=== PATIENT | male | born 1985 | race Hispanic/Latino ===

== ENCOUNTER 2023-08-11 20:52 | Inpatient (IN) | payer SELFPAY ==
[2023-08-11] MEDS ORDERED: PANTOPRAZOLE 40 MG INJ ONE (20:59)
[2023-08-11] MEDS ORDERED: OCTREOTIDE ACETATE 500 MCG/ML ONE (21:00)
[2023-08-11] MEDS ORDERED: NA CHLORIDE 0.9% 250 ML ONE ×2 (21:00→21:11)
[2023-08-11] MEDS ORDERED: NA CHLORIDE 0.9% 500 ML ONE (21:01)
[2023-08-11] MEDS ORDERED: NOREPINEPHRINE BITARTRATE/D5W 4 MG/250 ML BAG IV ONE (21:02)
[2023-08-11] MEDS ORDERED: ETOMIDATE 20 MG/10 ML VIAL IV ONE (21:03)
[2023-08-11] MEDS ORDERED: ROCURONIUM 50 MG/5 ML VIAL IV ONE (21:04)
[2023-08-11] MEDS ORDERED: NA CHLORIDE 0.9% 1,000 ML ONE (21:12)
[2023-08-11] MEDS ORDERED: MIDAZOLAM HCL IN 0.9 % NACL/PF 100 MG/100 ML BAG IVPB ONE (21:35)
[2023-08-11] MEDS ORDERED: NA CHLORIDE 0.9% 50 ML ONE (21:38)
[2023-08-11] MEDS ORDERED: FENTANYL CITR 100 MCG/2 ML ONE (21:38)
--- NOTE | 2023-08-11 21:46 | RAD REPORT ---
EXAM DESCRIPTION: RAD - Chest Single View - 08/11/2023 9:41 pm CLINICAL HISTORY: intubation Chest pain. COMPARISON: <Comparisons> FINDINGS: Portable technique limits examination quality. The lungs are grossly clear. Tip of the ET tube is above the donis at the level of the mid aortic ar ch. The heart is normal in size. No displaced fractures.
[2023-08-11 22:07] LABS: Absolute Lymphocytes (CBC) 2.1 K/uL (0.7-4.9); Hematocrit 14.6 % (39.6-49.0); MCV 100.1 fL (80-100); MPV 9.6 fL (7.6-11.3); Platelets 80 thou/uL (152-406); RBC Red Blood Cell Count 1.45 M/uL (4.33-5.43)
[2023-08-11] MEDS ORDERED: CEFTRIAXONE 1000 MG/VIAL ONE (22:12)
[2023-08-11 22:16] LABS: Protime INR 2.05
[2023-08-11 22:25] LABS: Albumin 1.7 g/dL (3.4-5.0); Bilirubin Total 1.7 mg/dL (0.2-1.0); Protein, Total 4.6 g/dL (6.4-8.2)
--- NOTE | 2023-08-11 22:31 | ER ---
Nurse's Notes [facility] Name: Leonardo Bravo Age: 37 yrs Sex: Male : 1985 Arrival Date: 08/11/2023 Time: 20:52 Bed 2 Private MD: Diagnosis: GI Bleed/ Gastrointestinal hemorrhage, unspecified;Anemia, unspecified;Altered mental status, unspecified Presentation: 08/11 20:55 Chief complaint: EMS states: EMS reports pt has had multiple events of bloody emesis tl4 and rectal bleeding all day today. Pt is unresponsive. Coronavirus screen: At this time, the client does not indicate any symptoms associated with coronavirus-19. Ebola Screen: No symptoms or risks identified at this time. 20:56 Method Of Arrival: EMS: [facility] tl4 21:02 Initial Sepsis Screen: Does the patient meet any 2 criteria? No. Patient's initial tl4 sepsis screen is negative. Does the patient have a suspected source of infection? No. Patient's initial sepsis screen is negative. 22:05 Risk Assessment: Do you want to hurt yourself or someone else? Unable to obtain. Onset tl4 of symptoms was August 11, 2023. 22:05 Acuity: JUAN 1 tl4 Triage Assessment: 21:10 General: Appears unkempt, Behavior is unresponsive. Pain: Unable to use pain scale. tl4 Patient is unresponsive. EENT: No deficits noted. Neuro: Level of Consciousness is unresponsive. Cardiovascular: Capillary refill is > 3 seconds in bilateral fingers skin cold, dry. Pulses are palpable in right radial artery and left radial artery are 1+ in right radial artery and left radial artery Rhythm is sinus tachycardia. Respiratory: Airway is patent Breath sounds are coarse bilaterally. GI: Parent/caregiver reports the patient having vomiting, bloody stool and emesis. : No deficits noted. Derm: No deficits noted. Historical: - Allergies: 22:05 No Known Allergies; tl4 - Home Meds: 22:05 None [Active]; tl4 - PMHx: 22:05 Alcohol dependence; tl4 - PSHx: 22:05 None; tl4 - Immunization history:: Adult Immunizations unknown. - Social history:: Smoking status: unknown. Screenin:16 [facility] ED Fall Risk Assessment (Adult) History of falling in the last 3 months, tl4 including since admission No falls in past 3 months (0 pts) Confusion or Disorientation Yes (5 pts) Intoxicated or Sedated Yes (3 pts) Impaired Gait Yes (1 pt) Mobility Assist Device Used Yes (1 pt) Altered Elimination No (0 pt) Score/Fall Risk Level 3 or more points = High Risk Oriented to surroundings, Maintained a safe environment, Educated pt \T\ family on fall prevention, incl call for assistance when getting out of bed, Assessed \T\ reinforced patient's understanding of fall precautions, Provided non-skid footwear, Hourly rounding (assess needs \T\ fall precautionary measures) done, Used ambulatory aids as needed (educated on \T\ assisted with), Used gait belt as appropriate Utilized family, sitter, or virtual insurance billing clerk as indicated. Abuse screen: Denies threats or abuse. Denies injuries from another. Nutritional screening: No deficits noted. Tuberculosis screening: No symptoms or risk factors identified. Assessment: 21:45 Reassessment: Pt intubated on ventilator. Pt compliant with ventilations. to tl4 bedside with Dr. Salas. Support provided, questions answered. Will continue to monitor. 22:14 Reassessment: Pt intubated, blood pressure improved. at bedside. Pain: Unable to tl4 use pain scale. Patient is intubated. 23:48 Reassessment: Pt remains intubated and sedated. at bedside. Reassessment:. tl4 23:49 Reassessment: Report given to CRISTINA Mar in ICU. tl4 Vital Signs: 21:00 BP 83 / 56; Pulse 152; Resp 12; Temp 97(Ca); Pulse Ox 100% ; Weight 91.63 kg (M); tl4 21:13 BP 86 / 52; Pulse 144; Resp 14; Pulse Ox 99% on 6 lpm NC; tl4 21:15 BP 109 / 53; Pulse 158; Resp 15; Pulse Ox 99% on 6 lpm NC; tl4 21:20 BP 98 / 70; Pulse 140; Resp 13; Pulse Ox 100% on 6 lpm NC; tl4 21:25 BP 188 / 107; Pulse 155; Resp 16; Pulse Ox 99% on BVM with oxygen; tl4 21:30 BP 198 / 110; Pulse 147; Resp 15; Temp 97.1(Ca); Pulse Ox 99% on ETT vent; tl4 21:35 BP 190 / 105; Pulse 141; Resp 15; Temp 97(Ca); Pulse Ox 100% on ETT vent; tl4 21:40 BP 192 / 99; Pulse 146; Resp 15; Pulse Ox 100% on ETT vent; tl4 21:45 BP 162 / 85; Pulse 144; Resp 16; Temp 97(Ca); Pulse Ox 100% on ETT vent; tl4 22:05 Weight 92.99 kg; as9 22:15 BP 132 / 70; Pulse 138; Resp 17; Temp 96.9(TE); Pulse Ox 100% on ETT vent; tl4 22:30 BP 141 / 70; Pulse 136; Resp 15; Temp 97(Ca); Pulse Ox 100% on ETT vent; tl4 22:45 BP 138 / 75; Pulse 122; Resp 16; Temp 97(Ca); Pulse Ox 99% on ETT vent; tl4 23:00 BP 126 / 68; Pulse 114; Resp 25; Temp 97(Ca); Pulse Ox 100% on ETT vent; tl4 23:15 BP 122 / 85; Pulse 118; Resp 26; Pulse Ox 100% on ETT vent; tl4 23:30 BP 122 / 90; Pulse 120; Resp 21; Temp 97(Ca); Pulse Ox 100% on ETT vent; tl4 23:45 BP 123 / 99; Pulse 118; Resp 17; Pulse Ox 100% on ETT vent; tl4 08/12 00:00 BP 138 / 72; Pulse 116; Resp 24; Temp 97.2; Pulse Ox 100% on ETT vent; rv 00:15 BP 105 / 81; Pulse 112; Resp 22; Temp 97.5; Pulse Ox 100% on ETT vent; rv [place] Coma Score: 08/11 22:00 Eye Response: none(1). Modifying Factors: Intubated. Modifying Factors: Medicated. rv Motor Response: none(1). Verbal Response: none(1). Total: 3. 23:00 Eye Response: none(1). Modifying Factors: Intubated. Modifying Factors: Medicated. rv Motor Response: none(1). Verbal Response: none(1). Total: 3. 08/12 00:00 Eye Response: none(1). Modifying Factors: Intubated. Modifying Factors: Medicated. rv Motor Response: none(1). Verbal Response: none(1). Total: 3. ED Course: 08/11 20:52 Patient arrived in ED. jj6 20:54 Titus Salas DO is Attending Physician. ms3 21:00 Maintain EMS IV. Dressing intact. Good blood return noted. Site clean \T\ dry. Gauge \T\ tl 4 site: 18g left AC. 21:01 CBC with Diff Sent. tl4 21:01 CMP Sent. tl4 21:01 Lipase Sent. tl4 21:01 Type And Screen Sent. tl4 21:15 Inserted saline lock: 18 gauge in right antecubital area, using aseptic technique. tl4 Blood collected. Oxygen administration via nasal cannula \T\ 6L/min Response to oxygen therapy: symptoms remain unchanged. Suctioned orally - small amount thin bloody sputum. 21:27 Assisted provider with intubation using 7.5 mm ETT via oral route. ET tube secured at tl4 25cm at the teeth. Intubated by Titus Salas DO Placement verified by CO2 detector w/ + color change, auscultating bilateral breath sounds, End-tidal CO2 montioring CXR, Patient tolerated well. 21:43 CXR XRAY In Process Unspecified. EDMS 21:52 Rashel Alonso, RN is Primary Nurse. as9 22:05 Triage completed. tl4 22:14 Arm band placed on right wrist. tl4 22:17 Patient has correct armband on for positive identification. Placed in gown. Bed in low tl4 position. Call light in reach. Side rails up X2. Adult w/ patient. Provided Education on: ed process. Client placed on continuous cardiac and pulse oximetry monitoring. NIBP monitoring applied. nurse monitoring on. temperature via urinary catheter. Moved to private room. Warm blanket given. 22:30 Zayra King MD is Hospitalizing Provider. ms3 08/12 00:21 Patient admitted, IV remains in place. rv 00:21 Inserted double lumen g20/g22 left forearm. rv Administered Medications: 08/11 23:23 Discontinued: norepinephrine0.1 mcg/kg/min IV at calculated rate See Administration tl4 Instructions; (Standard concentration 4 mg / 250 mL D5W); Recommended max rate 3 mcg/kg/min; Titrate 0.05 mcg/kg/min as often as every 5 minutes to achieve goal (see titration policy); Goal parameter MAP greater than 65 mmHg. 21:05 Drug: Pantoprazole IVP 80 mg IVP once Route: IVP; Site: right antecubital; as9 23:26 Follow up: Response: No adverse reaction tl4 21:08 Drug: Octreotide Infusion (50 mcg/hr) - (Octreotide IV 500 mcg, NS 0.9% IV 500 ml) IV as9 at 50 ml/hr continuous Route: IV; Rate: 50 ml/hr; Site: right antecubital; 08/12 00:24 Follow up: IV Status: Infusion continued upon admission rv 08/11 21:08 Drug: Norepinephrine IV 0.1 mcg/kg/min IV at calculated rate See Administration as9 Instructions; (Standard concentration 4 mg / 250 mL D5W); Recommended max rate 3 mcg/kg/min; Titrate 0.05 mcg/kg/min as often as every 5 minutes to achieve goal (see titration policy); Goal parameter MAP greater than 65 mmHg. Route: IV; Rate: calculated rate; Site: right upper arm; 21:15 Follow up: Rate change 10 mcg/min tl4 21:20 Follow up: Rate change 15 mcg/min tl4 21:25 Follow up: Rate change 5 mcg/min tl4 22:00 Drug: fentaNYL (PF) IV 25 mcg/kg/h IV at calculated rate See Administration as9 Instructions; (Standard concentration 500 mcg / 50 mL NS [10 mcg / 1 mL); Recommended max rate 4 mcg/kg/hr; Titrate 0.25 mcg/kg/hr as often as every 3 minutes to achieve goal (see titration policy); Goal parameter RASS score 0 to -2 Route: IV; Rate: calculated rate; Site: right antecubital; 23:17 Follow up: Rate change 10 calculated rate tl4 23:48 Follow up: Rate change 200 calculated rate tl4 08/12 00:23 Follow up: IV Status: Infusion continued upon admission rv 08/11 22:06 Drug: Midazolam IVP or IV 0.01 mg/kg/h IV at calculated rate See Administration as9 Instructions; (Standard concentration: 100 mg / 100 mL NS); Recommended max rate 0.1 mg/kg/hr; Titrate 0.01 mg/kg/hr as often as every 30 minutes to achieve goal (see titration policy); Goal parameter RASS 0 to -2 Route: IV; Rate: calculated rate; Site: right antecubital; 23:18 Follow up: Rate change 10 calculated rate tl4 23:45 Follow up: Rate change 15 mg/hr tl4 08/12 00:23 Follow up: IV Status: Infusion continued upon admission rv 08/11 22:10 Not Given (Duplicate Order): pantoprazole8 mg/hr IV at 25 ml/hr continuous; (Standard as9 dilution is 80 mg in 250 mL NS) 22:21 Drug: Rocephin IV 1 grams IV at calculated rate once; Given slow IV push per pharmacy as9 instructions Route: IV; Rate: calculated rate; Site: left antecubital; 23:25 Follow up: Response: No adverse reaction; IV Status: Completed infusion tl4 08/12 00:24 Drug: Pantoprazole IV 8 mg/hr IV at 25 ml/hr continuous; (Standard dilution is 80 mg in rv 250 mL NS) Route: IV; Rate: 25 ml/hr; Site: left forearm; 00:24 Follow up: IV Status: Infusion continued upon admission rv Medication: 08/11 21:13 Blood products: PRBCs X 1 unit given. tl4 21:30 Blood products: PRBCs unit complete. tl4 21:35 Blood products: PRBCs X 1 unit given. tl4 22:09 Blood products: PRBCs unit #2 complete. tl4 22:16 VIS not applicable for this client. tl4 22:25 Blood products: Plasma X 1 unit given. tl4 23:00 Blood products: PRBCs X 1 unit given. 3RD UNIT PRBC O POS UNCROSSMATCH, [id number], rv MASS TRANSFUSION PROTOCOL. 23:40 Blood products: Blood products: Platelets X 1 unit given. 1ST UNIT PLATELET, rv [id number], O POS. 23:50 Blood products: PRBCs X 1 unit given. 4TH UNIT PRBC O POS UNCROSSMATCH, [id number], rv MASS TRANSFUSION PROTOCOL. Outcome: 22:30 Decision to Hospitalize by Provider. ms3 08/12 00:21 Admitted to ICU accompanied by nurse, via stretcher, room ICU3, with oxygen, on rv monitor, with chart, Report called to [place] Condition: stable Instructed on the need for admit, 00:30 Patient left the ED. rv Signatures: Dispatcher [employer] EDMS Tal Jennings RN RN Titus Berkowitz DO DO ms3 DaneAmaris jj6 Anselmo Og RN RN tl4 Rashel Alonso, RN RN as9 Corrections: (The following items were deleted from the chart) 08/11 22:05 21:32 Chief complaint: EMS states: EMS reports pt has had multiple events of bloody tl4 emesis and rectal bleeding all day today. Pt is unresponsive. tl4 22:05 21:32 Coronavirus screen: At this time, the client does not indicate any symptoms tl4 associated with coronavirus-19. tl4 22:05 21:32 Ebola Screen: No symptoms or risks identified at this time. tl4 tl4 22:05 21:32 Method Of Arrival: EMS: [facility] tl4 tl4 22:06 22:05 PMHx: None; tl4 tl4 22:23 22:18 Assisted provider with intubation using 7.5 mm ETT via oral route. ET tube tl4 secured at 25cm at the teeth. Intubated by Titus Salas DO Placement verified by CO2 detector w/ + color change, auscultating bilateral breath sounds, End-tidal CO2 montioring CXR, Patient tolerated well. tl4
--- NOTE | 2023-08-11 22:31 | EDPHYS ---
Physician Documentation [facility] Name: Leonardo Bravo Age: 37 yrs Sex: Male : 1985 Arrival Date: 08/11/2023 Time: 20:52 Bed 2 Private MD: ED Physician Titus Salas HPI: 08/11 22:59 This 37 yrs old Male presents to ER via EMS with complaints of GI Bleeding. ms3 22:59 37-year-old male with no past medical history presents to the emergency department via ms3 [facility]. EMS states patient has history of alcohol daily and has been vomiting blood and had a bloody stools all day. EMS notes patient's systolic blood pressure 88 on their arrival. Patient with altered mental status and history limited. Historical: - Allergies: 22:05 No Known Allergies; tl4 - Home Meds: 22:05 None [Active]; tl4 - PMHx: 22:05 Alcohol dependence; tl4 - PSHx: 22:05 None; tl4 - Immunization history:: Adult Immunizations unknown. - Social history:: Smoking status: unknown. ROS: 23:03 Unable to obtain ROS due to altered mental status, ms3 Exam: 23:03 Head/Face: Normocephalic, atraumatic. Neck: Trachea midline, no cervical ms3 lymphadenopathy. Supple, full range of motion without nuchal rigidity, or vertebral point tenderness. No Meningismus. Chest/axilla: Normal chest wall appearance and motion. Nontender with no deformity. 23:03 Constitutional: The patient appears obviously ill, pale, 23:03 Cardiovascular: Rate: tachycardic, actual rate is 145 bpm, Rhythm: regular, Pulses: no pulse deficits are appreciated, Heart sounds: normal, normal S1and S2, Edema: is not appreciated, 23:03 Respiratory: Respirations: normal, Breath sounds: are clear throughout, 23:03 Abdomen/GI: Inspection: abdomen appears normal, Bowel sounds: normal, Palpation: soft, in all quadrants, nontender, in all quadrants, Vital Signs: 21:00 BP 83 / 56; Pulse 152; Resp 12; Temp 97(Ca); Pulse Ox 100% ; Weight 91.63 kg (M); tl4 21:13 BP 86 / 52; Pulse 144; Resp 14; Pulse Ox 99% on 6 lpm NC; tl4 21:15 BP 109 / 53; Pulse 158; Resp 15; Pulse Ox 99% on 6 lpm NC; tl4 21:20 BP 98 / 70; Pulse 140; Resp 13; Pulse Ox 100% on 6 lpm NC; tl4 21:25 BP 188 / 107; Pulse 155; Resp 16; Pulse Ox 99% on BVM with oxygen; tl4 21:30 BP 198 / 110; Pulse 147; Resp 15; Temp 97.1(Ca); Pulse Ox 99% on ETT vent; tl4 21:35 BP 190 / 105; Pulse 141; Resp 15; Temp 97(Ca); Pulse Ox 100% on ETT vent; tl4 21:40 BP 192 / 99; Pulse 146; Resp 15; Pulse Ox 100% on ETT vent; tl4 21:45 BP 162 / 85; Pulse 144; Resp 16; Temp 97(Ca); Pulse Ox 100% on ETT vent; tl4 22:05 Weight 92.99 kg; as9 22:15 BP 132 / 70; Pulse 138; Resp 17; Temp 96.9(TE); Pulse Ox 100% on ETT vent; tl4 22:30 BP 141 / 70; Pulse 136; Resp 15; Temp 97(Ca); Pulse Ox 100% on ETT vent; tl4 22:45 BP 138 / 75; Pulse 122; Resp 16; Temp 97(Ca); Pulse Ox 99% on ETT vent; tl4 23:00 BP 126 / 68; Pulse 114; Resp 25; Temp 97(Ca); Pulse Ox 100% on ETT vent; tl4 23:15 BP 122 / 85; Pulse 118; Resp 26; Pulse Ox 100% on ETT vent; tl4 23:30 BP 122 / 90; Pulse 120; Resp 21; Temp 97(Ca); Pulse Ox 100% on ETT vent; tl4 23:45 BP 123 / 99; Pulse 118; Resp 17; Pulse Ox 100% on ETT vent; tl4 08/12 00:00 BP 138 / 72; Pulse 116; Resp 24; Temp 97.2; Pulse Ox 100% on ETT vent; rv 00:15 BP 105 / 81; Pulse 112; Resp 22; Temp 97.5; Pulse Ox 100% on ETT vent; rv [place] Coma Score: 08/11 22:00 Eye Response: none(1). Modifying Factors: Intubated. Modifying Factors: Medicated. rv Motor Response: none(1). Verbal Response: none(1). Total: 3. 23:00 Eye Response: none(1). Modifying Factors: Intubated. Modifying Factors: Medicated. rv Motor Response: none(1). Verbal Response: none(1). Total: 3. 08/12 00:00 Eye Response: none(1). Modifying Factors: Intubated. Modifying Factors: Medicated. rv Motor Response: none(1). Verbal Response: none(1). Total: 3. Procedures: 08/11 21:35 Intubation: Intubated orally using Glidescope 4 blade with 7.5 mm ETT. was successful ms3 on first attempt. Ventilated with Ambu bag. Tube secured with ETT harman Placement verified by CO2 detector with (+) color change, auscultating bilateral breath sounds. MDM: 20:54 Patient medically screened. ms3 23:05 Differential diagnosis: gastritis, hemorrhagic shock, varices. Data reviewed: vital ms3 signs, nurses notes, lab test result(s), radiologic studies, and as a result, I will admit patient. Consideration of Admission/Observation Patient was admitted/placed on observation. Management of patient was discussed with the following: Hospitalist: Dr King. Geophysical Prospecting Permit Agent: Dr Colon. I considered the following discharge prescriptions or medication management in the emergency department Medications were administered in the Emergency Department. See MAR. Independent interpretation of the following test(s) in the Emergency Department X-Ray: My interpretation is CXR image reviewed by me: ETT correct position, no free air under diaphragm. Historians other than the Patient: EMS: [facility]. Spouse/Significant Other: Patient's - patient began vomiting blood approximately 10 am. Counseling: I had a detailed discussion with the patient and/or guardian regarding the historical points, exam findings, and any diagnostic results supporting the discharge/admit diagnosis, lab results, radiology results, the need for further work-up and treatment in the hospital. ED course: Dr. Colon has seen patient in the emergency department. Dr. Colon would like patient's hemoglobin at 8. Agrees with octreotide, pantoprazole drips. Recommended adding empiric Rocephin. Patient initially on Levophed while blood being prepared in the first unit started. Patient's blood pressure responded to blood products and Levophed was discontinued. Discussed case with night hospitalist and she accepts patient to ICU. All questions were answered. 08/11 20:55 Order name: CBC with Diff; Complete Time: 04:03 ms3 08/11 20:55 Order name: CMP; Complete Time: 22:26 ms3 08/11 20:55 Order name: Lipase; Complete Time: 22:26 ms3 08/11 20:55 Order name: Type And Screen ms3 08/11 21:06 Order name: Packed RBC Leukored EDMS 08/11 21:06 Order name: RBC Leukored Pheresis EDMS 08/11 21:32 Order name: PT-INR; Complete Time: 22:26 ms3 08/11 22:11 Order name: Fresh Frozen Plasma EDMS 08/11 23:05 Order name: Platelets, Leukored Pheresis EDMS 08/11 23:11 Order name: CBC with Automated Diff EDMS 08/11 23:11 Order name: Comprehensive Metabolic Panel EDMS 08/11 23:11 Order name: Ferritin EDMS 08/11 23:11 Order name: Iron EDMS 08/11 23:11 Order name: Magnesium EDMS 08/11 23:11 Order name: Protime (+INR) EDMS 08/11 23:11 Order name: Transferrin Sat/Iron Binding EDMS 08/11 23:11 Order name: Urinalysis w/ reflexes EDMS 08/11 23:11 Order name: Vitamin B12 Level EDMS 08/11 23:11 Order name: Troponin High Sensitivity EDMS 08/11 23:11 Order name: Troponin High Sensitivity EDMS 08/11 23:12 Order name: Hemoglobin A1c EDMS 08/11 23:45 Order name: CBC Smear Scan; Complete Time: 04:03 EDMS 08/12 00:27 Order name: ABO/RH no charge; Complete Time: 04:03 EDMS 08/11 21:36 Order name: CXR XRAY; Complete Time: 21:54 ms3 08/11 20:55 Order name: IV Saline Lock; Complete Time: 21:01 ms3 08/11 20:55 Order name: Labs collected and sent; Complete Time: 21:01 ms3 Administered Medications: 23:23 Discontinued: norepinephrine0.1 mcg/kg/min IV at calculated rate See Administration tl4 Instructions; (Standard concentration 4 mg / 250 mL D5W); Recommended max rate 3 mcg/kg/min; Titrate 0.05 mcg/kg/min as often as every 5 minutes to achieve goal (see titration policy); Goal parameter MAP greater than 65 mmHg. 21:05 Drug: Pantoprazole IVP 80 mg IVP once Route: IVP; Site: right antecubital; as9 23:26 Follow up: Response: No adverse reaction tl4 21:08 Drug: Octreotide Infusion (50 mcg/hr) - (Octreotide IV 500 mcg, NS 0.9% IV 500 ml) IV as9 at 50 ml/hr continuous Route: IV; Rate: 50 ml/hr; Site: right antecubital; 08/12 00:24 Follow up: IV Status: Infusion continued upon admission rv 08/11 21:08 Drug: Norepinephrine IV 0.1 mcg/kg/min IV at calculated rate See Administration as9 Instructions; (Standard concentration 4 mg / 250 mL D5W); Recommended max rate 3 mcg/kg/min; Titrate 0.05 mcg/kg/min as often as every 5 minutes to achieve goal (see titration policy); Goal parameter MAP greater than 65 mmHg. Route: IV; Rate: calculated rate; Site: right upper arm; 21:15 Follow up: Rate change 10 mcg/min tl4 21:20 Follow up: Rate change 15 mcg/min tl4 21:25 Follow up: Rate change 5 mcg/min tl4 22:00 Drug: fentaNYL (PF) IV 25 mcg/kg/h IV at calculated rate See Administration as9 Instructions; (Standard concentration 500 mcg / 50 mL NS [10 mcg / 1 mL); Recommended max rate 4 mcg/kg/hr; Titrate 0.25 mcg/kg/hr as often as every 3 minutes to achieve goal (see titration policy); Goal parameter RASS score 0 to -2 Route: IV; Rate: calculated rate; Site: right antecubital; 23:17 Follow up: Rate change 10 calculated rate tl4 23:48 Follow up: Rate change 200 calculated rate tl4 08/12 00:23 Follow up: IV Status: Infusion continued upon admission rv 08/11 22:06 Drug: Midazolam IVP or IV 0.01 mg/kg/h IV at calculated rate See Administration as9 Instructions; (Standard concentration: 100 mg / 100 mL NS); Recommended max rate 0.1 mg/kg/hr; Titrate 0.01 mg/kg/hr as often as every 30 minutes to achieve goal (see titration policy); Goal parameter RASS 0 to -2 Route: IV; Rate: calculated rate; Site: right antecubital; 23:18 Follow up: Rate change 10 calculated rate tl4 23:45 Follow up: Rate change 15 mg/hr tl4 08/12 00:23 Follow up: IV Status: Infusion continued upon admission rv 08/11 22:10 Not Given (Duplicate Order): pantoprazole8 mg/hr IV at 25 ml/hr continuous; (Standard as9 dilution is 80 mg in 250 mL NS) 22:21 Drug: Rocephin IV 1 grams IV at calculated rate once; Given slow IV push per pharmacy as9 instructions Route: IV; Rate: calculated rate; Site: left antecubital; 23:25 Follow up: Response: No adverse reaction; IV Status: Completed infusion tl4 08/12 00:24 Drug: Pantoprazole IV 8 mg/hr IV at 25 ml/hr continuous; (Standard dilution is 80 mg in rv 250 mL NS) Route: IV; Rate: 25 ml/hr; Site: left forearm; 00:24 Follow up: IV Status: Infusion continued upon admission rv Disposition: 04:02 Chart complete. ms3 Disposition Summary: 08/11/23 22:30 Hospitalization Ordered Notes: Hospitalization Status: Inpatient Admission ms3 Provider: Zayra King ms3 Location: Intensive Care Unit ms3 Problem: new ms3 Symptoms: have improved ms3 Bed/Room Type: Standard ms3 Condition: Guarded(08/11/23 22:31) ms3 Room Assignment: 3-(08/11/23 23:16) rv1 Diagnosis - GI Bleed/ Gastrointestinal hemorrhage, unspecified ms3 - Anemia, unspecified ms3 - Altered mental status, unspecified ms3 Forms: - Medication Reconciliation Form ms3 - SBAR form ms3 - Leadership Thank You Letter ms3 Critical care time excluding procedures: 08/11 23:05 Critical care time: Bedside Care: 70 minutes, Consultation: 10 minutes, Family ms3 Intervention: 15 minutes. Total time: 95 minutes Signatures: Dispatcher [employer] aTl Corbin RN RN rv Titus Salas DO DO ms3 Shelby Austin rv1 Anselmo Og RN RN tl4 Rashel Alonso RN RN as9 Corrections: (The following items were deleted from the chart) 22:06 22:05 PMHx: None; tl4 tl4 22:31 22:30 Stable ms3 ms3 23:16 22:30 ms3 rv1
[2023-08-11] MEDS ORDERED: ONDANSETRON 4 MG/2 ML VIAL IV PRN (23:04)
--- NOTE | 2023-08-11 23:19 | P.HP ---
Certification for Inpatient With expected LOS: >2 Midnights Practitioner: I am a practitioner with admitting privileges, knowledge of patient current condition, hospital course, and medical plan of care. Services: Services provided to patient in accordance with Admission requirements found in Title 42 Section 412.3 of the Code of Federal Regulations Patient History Date of Service: 08/11/23 Reason for admission: GI bleed History of Present Illness: 37 year old male with a history of alcohol abuse was brought to the ED for bloody emesis and melana that started today. Patient was brought in unresponsive to the ED with O2 sat of 96% on 6L O2, he was emergently intubated for airway protection. During intubation, alpa blood was noted in his esophagus. His provided the history and reported that since morning, he has had multiple with multiple episodes of bloody emesis and melana. She cannnot quantify how much he drinks but states that patient is a chronic alcoholic and drinks beer all day lo ng from morning to night-time with occasional liquor for many years. He has never been hospitalized for alcohol related issues. He smokes occasionally. His vitals at the ED BP 83/56 and HR 152. He had required Levophed briefly to improve BP and then weaned off. Pertinent labs include H&H 5/14.6, MCV 100.1, glucose 318, platelets 80, AG 21, bicarb 13, BUN/CR 29/1.41, AST 41, Tbili 1.7, INR 2 and PT 22.1. He has received 2u PRBC and protonix bolus. Platelets and FFP are pending. He will continue further stabilization in ICU, GI has evaluated him with plans for EGD in the morning when hgb improves. Review of Systems is unable to be obtained (sedated and intubated) Physical Examination - Vital Signs Temperature: 97 F Blood Pressure: 138/72 Pulse: 142 Respirations: 24 Pulse Ox (%): 100 - Physical Exam General: Other (Intubated) HEENT: Atraumatic, Normocephalic, Other (ET tube) Neck: JVD not distended Respiratory: Rhonchi/gurgles Cardiovascular: No edema, Other (Tachycardia) Gastrointestinal: Hypoactive, Non-distended Musculoskeletal: No swelling, No erythema Integumentary: No rashes Neurological: Other (Sedated) - Studies Laboratory Data (last 24 hrs) 08/11/23 08/11/23 08/11/23 21:55 21:55 21:55 WBC 8.90 Hgb 5.0 L* Hct 14.6 L Plt Count 80 L PT 22.1 H INR 2.05 Sodium 139 Potassium 4.0 BUN 29 H Creatinine 1.41 H Glucose 318 H Total Bilirubin 1.7 H AST 41 H ALT 22 Alkaline Phosphatase 84 Lipase 57 Assessment and Plan - Plan GI bleed Acute blood loss anemia + microcytic anemia Suspected variceal bleed Hemorrhagic shock Acute hypoxic respiratory failure, intubated for airway protection Acute kidney injury Alcohol abuse Thrombocyopenia Anion gap metabolic acidosis Coagulopathy Tobacco use Plan S/p endotracheal intubation, wean as tolerated Versed for sedation, will need monitoring for ETOH withdrawal when off versed Weaned off Levophed Transfuse 4u PRBC to >8, 1u FFP and platelets IV fluid NS GI consulted, endoscopy in the morning when more stable Protonix and Octreotide infusion F/u anemia panel, repeat CBC/CMP and A1c Critical care time 55mins - Advance Directives Does patient have a Living Will: No Does patient have a Durable POA for Healthcare: No
[2023-08-11 23:44] LABS: White Blood Cell Scan OK (OK)
[2023-08-11 23:45] LABS: Anisocytosis 1+; Blood Morphology Comment NOTED (NOT SEEN); Platelet Estimate DECR
[2023-08-12 01:49] LABS: Absolute Lymphocytes (CBC) 1.8 K/uL (0.7-4.9); Hematocrit 28.3 % (39.6-49.0); Lymphocytes % 16.6 % (15.3-44.8); MCV 89.4 fL (80-100); MPV 8.9 fL (7.6-11.3); Platelets 89 thou/uL (152-406); RBC Red Blood Cell Count 3.17 M/uL (4.33-5.43)
[2023-08-12] MEDS: NA CHLORIDE 0.9% 1,000 ML IV SCH ×2 (01:49→11:00)
[2023-08-12 01:58] LABS: Protime INR 1.64
[2023-08-12] MEDS ORDERED: MIDAZOLAM HCL 100 MG in NA CHLORIDE 0.9% 80 ML IV SCH (02:00)
[2023-08-12] MEDS: PANTOPRAZOLE INJ 80 MG in NA CHLORIDE 0.9% 250 ML IV SCH ×3 (02:00→21:24)
[2023-08-12] MEDS: OCTREOTIDE 500 MCG in NA CHLORIDE 0.9% 500 ML IV SCH ×2 (02:00→08:56)
[2023-08-12] MEDS: FENTANYL CITR 100 MCG/2 ML IV PRN (03:07)
[2023-08-12 04:29] LABS: Absolute Lymphocytes (CBC) 2.3 K/uL (0.7-4.9); Hematocrit 28.8 % (39.6-49.0); Lymphocytes % 17.2 % (15.3-44.8); MCV 89.8 fL (80-100); MPV 8.4 fL (7.6-11.3); Platelets 93 thou/uL (152-406); RBC Red Blood Cell Count 3.21 M/uL (4.33-5.43)
[2023-08-12] MEDS ORDERED: DEXMEDETOMIDINE HCL 200 MCG/2 ML VIAL ONE (04:29)
[2023-08-12] MEDS ORDERED: NA CHLORIDE 0.9% 100 ML ONE (04:29)
[2023-08-12 04:33] LABS: Protime INR 1.58
[2023-08-12] MEDS: DEXMEDETOMIDINE HCL 200 MCG in NA CHLORIDE 0.9% 98 ML IV SCH (04:37)
[2023-08-12 05:11] LABS: Albumin 2.1 g/dL (3.4-5.0); Bilirubin Total 2.3 mg/dL (0.2-1.0); Ferritin 327.3 ng/mL (26-388); Potassium 4.4 mEq/L (3.5-5.1); Protein, Total 5.4 g/dL (6.4-8.2)
[2023-08-12 05:16] LABS: Troponin High Sensitivity 1273.3 pg/mL (<58.9)
[2023-08-12 05:31] LABS: Urine Bacteria None Seen /HPF (<20); Urine Bilirubin NEGATIVE (Negative); Urine Blood 1+ (Negative); Urine Clarity Extremely Turbid (Clear); Urine Color Yellow (Yellow); Urine Glucose NEGATIVE (Negative); Urine Mucus Slight /HPF (None Seen); Urine Protein NEGATIVE (Negative); Urine Urobilinogen Normal (Normal)
[2023-08-12] MEDS: NOREPINEPHRINE BITARTRATE/D5W 4 MG/250 ML BAG IV ONE ×2 (06:18→14:56)
[2023-08-12] MEDS: NOREPINEPHRINE 4 MG in D5W 250 ML IV SCH (06:25)
[2023-08-12 08:02] LABS: Hematocrit 24.9 % (39.6-49.0)
[2023-08-12] MEDS: DEXMEDETOMIDINE HCL 1,000 MCG in NA CHLORIDE 0.9% 490 ML IV SCH (08:12)
[2023-08-12] MEDS ORDERED: propofoL 1,000 MG/100 ML VIAL IV ONE (08:24)
[2023-08-12] MEDS: FOLIC ACID 1 MG, MULTIVITAMINS INJ 10 ML, THIAMINE HCL 100 MG in NA CHLORIDE 0.9% 1,000 ML IV SCH (09:00)
--- NOTE | 2023-08-12 11:11 | P.PN ---
Subjective Date of Service: 08/12/23 Chief Complaint: GI bleed Patient is intubated and on mechanical ventilation. He is unresponsive. 4 units PRBC transfusion given, a unit of FFP given Low BP requiring Levophed this morning. Troponin elevated to 1200 Physical Examination - Vital Signs Temperature: 99.9 F Blood Pressure: 103/60 Pulse: 102 Respirations: 28 Pulse Ox (%): 100 - Studies Laboratory Data (last 24 hrs) 08/11/23 08/11/23 08/11/23 21:55 21:55 21:55 WBC 8.90 Hgb 5.0 L* Hct 14.6 L Plt Count 80 L PT 22.1 H INR 2.05 Sodium 139 Potassium 4.0 BUN 29 H Creatinine 1.41 H Glucose 318 H Total Bilirubin 1.7 H AST 41 H ALT 22 Alkaline Phosphatase 84 Lipase 57 Assessment And Plan - Plan Physical examination General: Unresponsive, intubated and on mechanical ventilation HEENT: Conjunctiva not pale, anicteric sclera Neck: Supple, no elevated JVD Heart: Heart sounds 1 and 2 normal, regular rhythm, normal rate, no pedal edema Lungs: Clear to auscultation bilaterally, adequate breath sounds bilaterally, no rhonchi or crackles. Abdomen: Soft, nondistended, nontender, normal bowel sounds. Extremities: No tenderness, no deformity Skin: Normal skin turgor, no rash, no nodules or ulcers. Neuro: No focal motor deficit. Normal speech. Psychiatry: Normal mood, no agitation. Diagnosis GI bleed Acute blood loss anemia + microcytic anemia Variceal bleed Hemorrhagic shock Acute hypoxic respiratory failure, intubated for airway protection Acute kidney injury Alcohol abuse Thrombocyopenia Anion gap metabolic acidosis Coagulopathy Tobacco use Plan: GI bleed/acute blood loss anemia Esophageal varices bleed Hemorrhagic shock Coagulopathy Patient seen by Dr. Colon for emergency endoscopy. Bleeding esophageal varix which was banded by Dr. Colon. Patient presented with severe anemia, status post 4 units PRBC transfusion Continue to monitor H&H every 4 hours and transfuse as needed for hemoglobin less than 8. IV Protonix drip, octreotide drip. Continue Levophed IV hydration with D5 NS P.o. nadolol once blood pressure has improved and patient is off pressors. Prophylactic IV Rocephin. Status post FFP for coagulopathy. Alcohol abuse Coagulopathy Thrombocytopenia Liver failure secondary to liver cirrhosis highly likely. Obtain right upper quadrant ultrasound to confirm liver cirrhosis. Status post FFP. Monitor CBC Platelet transfusion as needed IV thiamine, IV folic acid. D5 NS. Toxicology screen. ESHA/metabolic acidosis Serum creatinine improved to normal. Metabolic acidosis resolved. IV fluid Watch for anasarca and ascites. Acute respiratory failure with hypoxia/metabolic encephalopathy Patient intubated for airway protection. Continue mechanical ventilation Check ammonia level to assess for hepatic encephalopathy. DVT prophylaxis: [facility] Critical care time spent managing patient's hypertension, acute GI bleed, hemorrhagic shock as about 56 minutes.
[2023-08-12] MEDS: CEFTRIAXONE 1,000 MG in NA CHLORIDE 0.9% 50 ML IVPB SCH (11:16)
[2023-08-12] MEDS: THIAMINE 200 MG/2 ML INJ IV SCH (11:21)
[2023-08-12] MEDS ORDERED: THIAMINE 200 MG/2 ML INJ ONE (11:21)
--- NOTE | 2023-08-12 11:39 | P.CNS ---
Date of Consult: 08/12/23 Reason for Consult: Patient on a ventilator alcoholic Chief Complaint: GI bleed History of Present Illness: Patient is 37 years of age with a history of significant alcohol abuse admitted to the hospital with bleeding bloody emesis and melenic stools that come on rather suddenly there is no prior history of cirrhosis of the liver is at the bedside apparently he has esophageal varices and was intubated is currently on a Precedex drip there is no bleeding right now Allergies No Known Allergies Allergy (Verified 08/11/23 23:47) Home Medications: NK [No Home Meds] 08/12/23 - Past Medical/Surgical History Diabetic: No -: fontenot as a child - Family History Mother Medical History: Hypertension - Social History Smoking Status: Unknown if ever smoked Alcohol use: Yes CD- Drugs: No Caffeine use: Yes Place of Residence: Home Review of Systems is unable to be obtained Physical Examination Temp Pulse Resp BP Pulse Ox 99.9 F 102 H 28 H 103/60 100 08/12/23 11:33 08/12/23 11:33 08/12/23 11:33 08/12/23 11:33 08/12/23 11:33 General: Unresponsive Respiratory: Clear to auscultation bilaterally, Diminished Cardiovascular: No edema, Normal S1 S2 Gastrointestinal: Hypoactive Laboratory Data (last 24 hrs) 08/11/23 08/11/23 08/11/23 21:55 21:55 21:55 WBC 8.90 Hgb 5.0 L* Hct 14.6 L Plt Count 80 L PT 22.1 H INR 2.05 Sodium 139 Potassium 4.0 BUN 29 H Creatinine 1.41 H Glucose 318 H Total Bilirubin 1.7 H AST 41 H ALT 22 Alkaline Phosphatase 84 Lipase 57 - Problems (1) Shock Current Visit: Yes Status: Acute Plan: Patient is 37 years of age alcoholic admitted with GI bleeding he is has varices he is currently in shock his hemoglobin is 5 on admission required blood transfusions currently on Levophed on a ventilator abnormal LFTs as expected his INR is also elevated chest x-ray is clear endotracheal tube in satisfactory position oxygenation satisfactory patient is has currently has diaphoresis may be withdrawing from alcohol there is no history of cirrhosis or GI bleeding until this admission
[2023-08-12] MEDS: FOLIC ACID 1 MG in NA CHLORIDE 0.9% 50 ML IV SCH (12:24)
[2023-08-12] MEDS: NA CHLORIDE 0.9% 1,000 ML IV ONE (12:25)
[2023-08-12 13:48] LABS: Barbiturates NEGATIVE (NEGATIVE); Benzodiazepines POSITIVE (NEGATIVE); Cocaine POSITIVE (NEGATIVE); METHAMPHETAM NEGATIVE (NEGATIVE); Methadone NEGATIVE (NEGATIVE); Opiates NEGATIVE (NEGATIVE); Phencyclidine NEGATIVE (NEGATIVE); THC Cannibis NEGATIVE (NEGATIVE)
[2023-08-12] MEDS: NOREPINEPHRINE BITARTRATE/D5W 4 MG/250 ML BAG IV SCH (15:21)
[2023-08-12] MEDS: LORazepam 2 MG/ML VIAL IV PRN (17:35)
--- NOTE | 2023-08-12 18:00 | RAD REPORT ---
EXAM DESCRIPTION: RAD - Chest Single View - 08/12/2023 5:48 pm CLINICAL HISTORY: picc COMPARISON: Chest Single View dated 08/12/2023; Chest Single View dated 08/11/2023 FINDINGS: Lines: Right subclavian approach PICC with tip overlying the SVC in satisfactory position. Endotracheal tube tip at the aortic arch in satisfactory position. Lungs: Low lung volumes with basilar opacities. Pleural: No significant pleural effusions or pneumothorax. Cardiac: The heart size is within normal limits. Mediastinum: Within normal limits. Bones: No acute fractures. Other: None IMPRESSION: PICC tip overlies the SVC in satisfactory position. Endotracheal tube at the aortic arch . Mild basilar airspace disease which could reflect atelectasis and/or airspace disease.
--- NOTE | 2023-08-12 18:01 | RAD REPORT ---
EXAM DESCRIPTION: RAD - Chest Single View - 08/12/2023 5:48 pm CLINICAL HISTORY: PICC line placement COMPARISON: Chest Single View dated 08/11/2023 FINDINGS: Lines: Endotracheal tube at the aortic arch. Right subclavian approach PICC with tip overl pierce the right atrium . This was subsequently retracted. Lungs: Mild basilar airspace disease. Pleural: No significant pleural effusions or pneumothorax. Cardiac: The heart size is within normal limits. Mediastinum: Within normal limits. Bones: No acute fractures. Other: None IMPRESSION: ET tube in satisfactory position at the aortic arch. Right subclavian approach PICC with tip overlying the right atrium. This was subsequently retracted into better positioning. Mild basila r opacities could reflect atelectasis and/or airspace disease .
[2023-08-12] MEDS: Mupirocin NASAL 2 APPL/1 GM TUBE NAS SCH (22:40)
[2023-08-12] MEDS: EPINEPHRINE 1 MG/ML VIAL ONE (22:49)
[2023-08-13 05:00] LABS: Hematocrit 22.1 % (39.6-49.0); Lymphocytes % 23.4 % (15.3-44.8); MCV 91.2 fL (80-100); MPV 8.7 fL (7.6-11.3); Platelets 84 thou/uL (152-406); RBC Red Blood Cell Count 2.43 M/uL (4.33-5.43)
[2023-08-13 05:18] LABS: Albumin 1.8 g/dL (3.4-5.0); Bilirubin Total 2.6 mg/dL (0.2-1.0); Protein, Total 4.8 g/dL (6.4-8.2)
[2023-08-13] MEDS ORDERED: THIAMINE 200 MG/2 ML INJ ONE ×2 (08:12→19:39)
[2023-08-13 08:33] LABS: Blood Morphology Comment NOT SEEN (NOT SEEN); Platelet Estimate DECR; Polychromasia 1+
--- NOTE | 2023-08-13 11:03 | RAD REPORT ---
EXAM DESCRIPTION: RAD - Chest Single View - 08/13/2023 9:55 am CLINICAL HISTORY: Resp failure Chest pain. COMPARISON: Chest Single View dated 08/12/2023; Chest Single View dated 08/12/2023; Chest Single View dated 08/11/2023 FINDINGS: Portable technique limits examination quality. Tip of the endotracheal tube is at the level of the superior aortic arch. Right-sided venous catheter its tip in the SVC. Minimal bilateral pulmonary opacities noted, appearing mildly improved since yes terday's study. IMPRESSION: Mild improvement lung aeration since yesterday's examination.
--- NOTE | 2023-08-13 12:50 | P.CNS ---
Date of Consult: 08/13/23 Chief Complaint: GI bleed History of Present Illness: 37 y/o make was found altered, admitted with GI bleed and drop in Hgb, cardiology was conulted for mild leak in troponin Allergies No Known Allergies Allergy (Verified 08/11/23 23:47) Home Medications: NK [No Home Meds] 08/12/23 - Past Medical/Surgical History Diabetic: No -: fontenot as a child - Family History Mother Medical History: Hypertension - Social History Smoking Status: Unknown if ever smoked Alcohol use: Yes CD- Drugs: No Caffeine use: Yes Place of Residence: Home Review of Systems 10-point ROS is otherwise unremarkable Physical Examination Temp Pulse Resp BP Pulse Ox 99.6 F 92 H 31 H 77/46 L 100 08/13/23 12:00 08/13/23 12:30 08/13/23 12:30 08/13/23 12:30 08/13/23 12:30 General: Other (intubated) HEENT: Atraumatic, Normocephalic Neck: Supple, JVD not distended Respiratory: Clear to auscultation bilaterally Cardiovascular: Regular rate/rhythm, Normal S1 S2 Gastrointestinal: Normal bowel sounds - Problems (1) Type 2 myocardial infarction due to anemia Current Visit: Yes Status: Acute Plan: patient EKG is normal and troponin are trending down. most likely type 2 VT for severe GI bleed. Please get Echo in am
--- NOTE | 2023-08-13 13:40 | P.PN ---
Subjective Date of Service: 08/13/23 Chief Complaint: GI bleed Patient remain intubated and on mechanical ventilation. He has been diaphoretic He is unresponsive. 4 units PRBC transfusion given, a unit of FFP given He remains on Levophed. Troponin elevated to 1200 Physical Examination - Vital Signs Temperature: 99.6 F Blood Pressure: 77/46 Pulse: 90 Respirations: 31 Pulse Ox (%): 100 Assessment And Plan - Plan Physical examination General: Unresponsive, intubated and on mechanical ventilation HEENT: Conjunctiva not pale, anicteric sclera Neck: Supple, no elevated JVD Heart: Heart sounds 1 and 2 normal, regular rhythm, normal rate, no pedal edema Lungs: Bilateral upper airway transmitted sounds, adequate breath sounds bilaterally, no rhonchi or crackles. Abdomen: Soft, nondistended, nontender, normal bowel sounds. Extremities: No tenderness, no deformity Skin: Normal skin turgor, no rash, no nodules or ulcers. Neuro: Sedated, unable to examine motor. Psychiatry: Sedated. Diagnosis GI bleed Acute blood loss anemia + microcytic anemia Variceal bleed Hemorrhagic shock Acute hypoxic respiratory failure, intubated for airway protection Acute kidney injury Alcohol abuse Thrombocyopenia Anion gap metabolic acidosis Coagulopathy Tobacco use Plan: GI bleed/acute blood loss anemia Esophageal varices bleed Hemorrhagic shock Coagulopathy Hepatic encephalopathy Status post emergency endoscopy and banding of gastric varices. GI Dr. Colon input appreciated. Patient presented with severe anemia, status post 4 units PRBC transfusion Hemoglobin has been relatively stable overnight between 7-8 which is current target hemoglobin. Continue to monitor H&H every 4 hours and transfuse as needed for hemoglobin less than 7. Continue IV Protonix drip, octreotide drip. Wean Levophed IV hydration with D5 NS P.o. nadolol once blood pressure has improved and patient is off pressors. Prophylactic IV Rocephin. Status post FFP for coagulopathy. Ammonia level markedly elevated. No lactulose for now given n.p.o. status and NG tube contraindication given bleeding esophageal varices. Lactulose once feeding is resumed. Alcohol abuse Coagulopathy Thrombocytopenia Cocaine abuse Liver failure secondary to liver cirrhosis highly likely. Obtain right upper quadrant ultrasound to confirm liver cirrhosis. Patient is diaphoretic and may also be going through DTs Currently on Precedex. Status post FFP. Monitor CBC Platelet transfusion as needed IV thiamine, IV folic acid. D5 NS. Toxicology screen positive for cocaine ESHA/metabolic acidosis Serum creatinine improved to normal. Metabolic acidosis resolved. Continue IV fluid Watch for anasarca and ascites. Acute respiratory failure with hypoxia/metabolic encephalopathy Patient intubated for airway protection. Continue mechanical ventilation Check ammonia level to assess for hepatic encephalopathy. Elevated troponin Likely a combination of demand ischemia secondary to anemia and vasospasms from cocaine abuse Patient is not a candidate for anticoagulation at this time. Obtain echocardiogram Cardiology input appreciated DVT prophylaxis: SCD
[2023-08-13] MEDS: PANTOPRAZOLE INJ 80 MG in NA CHLORIDE 0.9% 250 ML IV SCH (17:18)
[2023-08-13] MEDS: OCTREOTIDE 500 MCG in NA CHLORIDE 0.9% 500 ML IV SCH (17:19)
[2023-08-13] MEDS: THIAMINE 200 MG/2 ML INJ IV SCH (19:42)
[2023-08-13 21:23] LABS: Hematocrit 21.5 % (39.6-49.0)
[2023-08-14 05:25] LABS: Absolute Lymphocytes (CBC) 2.1 K/uL (0.7-4.9); Lymphocytes % 25.9 % (15.3-44.8); MCV 93.9 fL (80-100); Platelets 73 thou/uL (152-406); RBC Red Blood Cell Count 2.35 M/uL (4.33-5.43)
[2023-08-14 05:51] LABS: Albumin 1.8 g/dL (3.4-5.0); Bilirubin Total 3.3 mg/dL (0.2-1.0); Magnesium 2.3 mg/dL (1.6-2.4); Phosphorus 3.3 mg/dL (2.5-4.9)
[2023-08-14] MEDS: NOREPINEPHRINE BITARTRATE/D5W 4 MG/250 ML BAG IV ONE (07:55)
[2023-08-14] MEDS ORDERED: THIAMINE 200 MG/2 ML INJ ONE ×2 (07:58→20:19)
--- NOTE | 2023-08-14 08:24 | RAD REPORT ---
[facility] CLINICAL HISTORY: Resp failure COMPARISON: Chest Single View dated 08/13/2023; Chest Single View dated 08/12/2023; Chest Single View dated 08/12/2023; Chest Single View dated 08/11/2023 TECHNIQUE: Portable AP view of the chest. FINDINGS: Endotracheal tube and right arm PICC unchanged in position. The lungs are clear apart from decreased inspiratory effort which limits evaluation. Minimal left basilar opacities appear to have improved. No pneumothorax or effusion. The cardiomediastinal contours are unremarkable. IMPRESSION: Continued improvement of lung aeration although decreased inspiratory effort limits eval uation.
--- NOTE | 2023-08-14 11:25 | P.PN ---
Subjective Date of Service: 08/14/23 Chief Complaint: TROPONIN ELEVATION Subjective: No new changes (Patient still intubated requring low dose levophed) Review of Systems 10-point ROS is otherwise unremarkable Physical Examination - Vital Signs Temperature: 100.2 F Blood Pressure: 91/47 Pulse: 74 Respirations: 21 Pulse Ox (%): 100 - Physical Exam General: Other (intubated, sedated) HEENT: Atraumatic Neck: Supple Respiratory: Clear to auscultation bilaterally Cardiovascular: No edema, Regular rate/rhythm, Normal S1 S2 Gastrointestinal: Normal bowel sounds Assessment And Plan - Current Problems (Diagnosis) (1) Type 2 myocardial infarction due to anemia Current Visit: Yes Status: Acute Plan: patient EKG is normal and troponin are trending down. most likely type 2 SD for severe GI bleed. if Echo is normal then no concern for troponin leak
--- NOTE | 2023-08-14 12:25 | P.PN ---
Subjective Date of Service: 08/14/23 Chief Complaint: Respiratory failure Patient's condition is stable currently on a ventilator Review of Systems is unable to be obtained Physical Examination - Vital Signs Temperature: 100.2 F Blood Pressure: 91/47 Pulse: 74 Respirations: 21 Pulse Ox (%): 100 - Physical Exam General: Unresponsive Respiratory: Clear to auscultation bilaterally, Diminished, Friction rub Cardiovascular: Normal S1 S2 Gastrointestinal: Hypoactive Assessment And Plan - Current Problems (Diagnosis) (1) Shock Current Visit: Yes Status: Acute Plan: Patient's condition is stable's are no further episodes of GI bleeding still requiring Levophed started on TPN chemistries reviewed liver function test is worse I suspect that he has a shock liver white count is normal chest x-ray clear endotracheal tube in satisfactory position patient is still requiring dexmedetomidine to use Ativan less diaphoretic diaphoretic today patient is a Protonix drip and octreotide once more awake will try to wean him off dexmedetomidine drip possibly off the ventilator his chest x-ray is clear
--- NOTE | 2023-08-14 12:35 | P.PN ---
Subjective Date of Service: 08/14/23 Chief Complaint: TROPONIN ELEVATION Patient remain intubated and on mechanical ventilation. He is not able to give any subjective He is maintained on Precedex drip for alcohol withdrawal and vent sedation. He remains on Levophed. Physical Examination - Vital Signs Temperature: 100.2 F Blood Pressure: 91/47 Pulse: 74 Respirations: 21 Pulse Ox (%): 100 Assessment And Plan - Plan Physical examination General: Unresponsive, intubated and on mechanical ventilation HEENT: Conjunctiva not pale, anicteric sclera Neck: Supple, no elevated JVD Heart: Heart sounds 1 and 2 normal, regular rhythm, normal rate, no pedal edema Lungs: Bilateral upper airway transmitted sounds, adequate breath sounds bilaterally, no rhonchi or crackles. Abdomen: Soft, nondistended, nontender, normal bowel sounds, mildly distended. Extremities: No tenderness, no deformity Skin: Normal skin turgor, no rash, no nodules or ulcers. Neuro: Sedated, unable to examine motor. Psychiatry: Sedated. Diagnosis GI bleed Acute blood loss anemia + microcytic anemia Variceal bleed Hemorrhagic shock Acute hypoxic respiratory failure, intubated for airway protection Acute kidney injury Alcohol abuse Thrombocyopenia Anion gap metabolic acidosis Coagulopathy Tobacco use Plan: GI bleed/acute blood loss anemia Esophageal varices bleed Hemorrhagic shock Coagulopathy Hepatic encephalopathy Status post emergency endoscopy and banding of esophageal varices. GI Dr. Colon input appreciated. Patient presented with severe anemia, status post 4 units PRBC transfusion Hemoglobin has been relatively stable between 7-8 which is current target hemoglobin. Continue to monitor H&H every 4 hours and transfuse as needed for hemoglobin less than 7. Continue IV Protonix drip, octreotide drip. Wean Levophed as needed. Keep NPO. Anticipating prolonged n.p.o. status Contraindicated for NG tube. Start TPN P.o. nadolol once blood pressure has improved and patient is off pressors. Prophylactic IV Rocephin. Status post FFP for coagulopathy. Ammonia level markedly elevated. No lactulose for now given n.p.o. status and NG tube contraindication given bleeding esophageal varices. Lactulose once feeding is resumed. Alcohol abuse Coagulopathy Thrombocytopenia Cocaine abuse Liver failure secondary to liver cirrhosis highly likely. Obtain right upper quadrant ultrasound to confirm liver cirrhosis. Patient is diaphoretic and may also be going through DTs Continue Precedex. Status post FFP. Monitor CBC Platelet transfusion as needed IV thiamine, IV folic acid. D5 NS. Toxicology screen positive for cocaine ESHA/metabolic acidosis Serum creatinine improved to normal. Metabolic acidosis resolved. Continue IV fluid Watch for anasarca and ascites. Acute respiratory failure with hypoxia/metabolic encephalopathy Patient intubated for airway protection. Continue mechanical ventilation Elevated troponin Likely a combination of demand ischemia secondary to anemia and vasospasms from cocaine abuse Patient is not a candidate for anticoagulation at this time. Echocardiogram is pending. Cardiology input appreciated DVT prophylaxis: SCD
--- NOTE | 2023-08-14 13:28 | ECHO ---
HEIGHT: 5 ft 6 in WEIGHT: 217 lb 8 oz DATE OF STUDY: 08/14/[address]: Brock Mai MD 2-DIMENSIONAL: YES M.MODE: YES DOPPLER: YES COLOR FLOW: YES TDS: PORTABLE: YES DEFINITY: BUBBLE STUDY: DIAGNOSIS: ELEVATED TROPONIN CARDIAC HISTORY: CATHERIZATION: NO SURGERY: NO PROSTHETIC VALVE: NO PACEMAKER: NO MEASUREMENTS (cm) DIASTOLIC (NORMALS) SYSTOLIC (NORMALS) IVSd 0.9 (0.6-1.2) LA Diam 2.9 (1.9-4.0) LVEF 67% LVIDd 4.8 (3.5-5.7) LVIDs 3.0 (2.0-3.5) %FS 37% LVPWd 1.0 (0.6-1.2) Ao Diam 2.7 (2.0-3.7) 2 DIMENSIONAL ASSESSMENT: RIGHT ATRIUM: NORMAL LEFT ATRIUM: NORMAL RIGHT VENTRICLE: NORMAL LEFT VENTRICLE: NORMAL TRICUSPID VALVE: NORMAL MITRAL VALVE: NORMAL PULMONIC VALVE: NORMAL AORTIC VALVE: NORMAL PERICARDIAL EFFUSION: NONE AORTIC ROOT: NORMAL LEFT VENTRICULAR WALL MOTION: NORMAL DOPPLER/COLOR FLOW: NORMAL COMMENTS: 1. NORMAL LEFT VENTRICULAR SYSTOLIC AND DIASTOLIC FUNCTION, EJECTION FRACTION 60-65%, NORMAL WALL MOTION 2. RIGHT ATRIAL PRESSURE 5-10 mmHg, INSUFFICIENT TRICUSPID REGURGITATION TECHNOLOGIST: FLORA MAYO
--- NOTE | 2023-08-14 13:39 | EKG ---
Test Date: 2023-08-12 Test Time: 09:20:12 Youth Care Worker: RNNT MEASUREMENT RESULTS: Intervals: Rate: 99 OK: 126 QRSD: 72 QT: 376 QTc: 482 [place]: P: 57 OK: 126 QRS: 62 T: 40 INTERPRETIVE STATEMENTS: Normal sinus rhythm Prolonged QT Abnormal ECG No previous ECG available for comparison Electronically Signed On 08-14-23 13:33:43 TILE MOLDER by Davonte Mcfadden
[2023-08-14] MEDS ORDERED: AA 5%/D20W/ELECTROLYTES-TPN 2,000 ML, Lipids 20% 250 ML with MULTIVITAMINS INJ 10 ML IV SCH (17:00)
[2023-08-14 17:12] LABS: Hematocrit 20.7 % (39.6-49.0)
[2023-08-14] MEDS: AA 5%/D20W/ELECTROLYTES-TPN 2,000 ML, Lipids 20% 250 ML with MULTIVITAMINS INJ 10 ML IV SCH (17:37)
[2023-08-14] MEDS ORDERED: LORazepam 2 MG/ML VIAL ONE (20:31)
[2023-08-15 05:15] LABS: Absolute Lymphocytes (CBC) 1.4 K/uL (0.7-4.9); Hematocrit 22.1 % (39.6-49.0); Lymphocytes % 21.9 % (15.3-44.8); MCV 95.8 fL (80-100); Platelets 85 thou/uL (152-406); RBC Red Blood Cell Count 2.31 M/uL (4.33-5.43)
[2023-08-15 06:05] LABS: Albumin 1.7 g/dL (3.4-5.0); Bilirubin Total 2.6 mg/dL (0.2-1.0); Magnesium 2.5 mg/dL (1.6-2.4); Protein, Total 5.3 g/dL (6.4-8.2)
--- NOTE | 2023-08-15 07:31 | RAD REPORT ---
EXAM DESCRIPTION: RAD - Chest Single View - 08/15/2023 4:44 am CLINICAL HISTORY: Resp failure Chest pain. COMPARISON: Chest Single View dated 08/14/2023; Chest Single View dated 08/13/2023; Chest Single View dated 08/12/2023; Chest Single View dated 08/12/2023 FINDINGS: Portable technique limits examination quality. Tip of the ET tube is at the level of the superior aortic arch, unchanged. Right-sided PICC line is i n place with its tip in the SVC. Mild asymmetric bilateral pulmonary opacities are again seen, unchan ged. The heart is within normal range size.
--- NOTE | 2023-08-15 07:36 | P.PN ---
Date of Service: 08/15/23 Subjective: remains intubated/minimally sedated no BM in a few days still requiring low dose levophed hgb stable, no bleeding noted on exam/at bedside vent weaning trials ROS: unable to obtain due to mental status / intubation Physical Exam: GEN: intubated and on mechanical ventilation, unresponsive HEENT: Normal conjunctiva, sclera anicteric CV: Regular rate and rhythm, trace b/l pedal edema Pulm: on mechanical ventilator 28% FiO2, diminished at bases b/l ABD: Soft, nontender, nondistended Neuro: Sedated PICC in place vitals reviewed Problem List: GI bleed/acute blood loss anemia secondary to Esophageal varices bleed Hemorrhagic shock secondary to above Coagulopathy suspect Hepatic encephalopathy Acute hypoxic respiratory failure, intubated for airway protection NSTEMI Alcohol abuse Thrombocytopenia Cocaine abuse ESHA/metabolic acidosis, resolved GI bleed/acute blood loss anemia likely secondary to Esophageal varices bleed Hemorrhagic shock Coagulopathy Hepatic encephalopathy hgb noted to be 5 on admission s/p 4 total uPRBC (08/11) Repeat hgb 9.8 Hemoglobin has been between 7-8 last 24-48 hours remains on levophed; wean as tolerated 1 uPRBC ordered 08/15 Dr. Colon - GI consulted s/p emergent EGD and banding of esophageal varices. (08/11) Continue IV Protonix drip, octreotide drip. Keep NPO. Anticipating prolonged n.p.o. status continue TPN; started 08/14 P.O. nadolol once blood pressure has improved and patient is off pressors. Continue IV Rocephin (08/12-). added 08/12 prophylactically Status post FFP for coagulopathy. Ammonia level markedly elevated on admission, will recheck, could possibly be contributing to encephalopathy No lactulose for now given NPO. status and NG tube contraindication given bleeding esophageal varices, may need enema Acute respiratory failure with hypoxia/metabolic encephalopathy Patient intubated for airway protection. Continue mechanical ventilation remains on levophed NSTEMI Troponins trended down likely demand ischemia secondary to anemia and vasospasms from cocaine abuse Patient is not a candidate for anticoagulation at this time. Echo (08/14): 67%EF, normal wall motion, right atrial pressure 5-10mmHg, insufficient TR Cardiology consulted Alcohol abuse Coagulopathy Thrombocytopenia Cocaine abuse Liver failure secondary to liver cirrhosis highly likel and component of hypotension / hemorrhagic shock. remains on levophed Status post FFP. Daily CBC Platelet transfusion PRN continue IV thiamine, IV folic acid. Toxicology screen positive for cocaine ESHA/metabolic acidosis, resolved Resolved. Continue TPN Watch for anasarca and ascites. VTE: SCD given bleed Code: Full Dispo: continue ICU level of care
[2023-08-15] MEDS ORDERED: THIAMINE 200 MG/2 ML INJ ONE ×2 (08:33→20:49)
[2023-08-15] MEDS ORDERED: HYDROCORTISONE SUC 100 MG INJ ONE ×2 (08:33→20:49)
[2023-08-15] MEDS: HYDROCORTISONE SUC 100 MG INJ IV SCH (08:49)
[2023-08-15] MEDS ORDERED: NA CHLORIDE 0.9% 250 ML ONE (10:23)
[2023-08-15] MEDS ORDERED: FENTANYL CITR 100 MCG/2 ML ONE (11:05)
--- NOTE | 2023-08-15 12:20 | P.PN ---
Subjective Date of Service: 08/15/23 Chief Complaint: Respiratory failure patient on a ventilator Patient remains unresponsive to deep pain on a ventilator otherwise stable no bleeding Review of Systems is unable to be obtained Physical Examination - Vital Signs Temperature: 97.9 F Blood Pressure: 109/61 Pulse: 75 Respirations: 12 Pulse Ox (%): 100 - Physical Exam General: Unresponsive, Comatose Respiratory: Clear to auscultation bilaterally Cardiovascular: No edema, Regular rate/rhythm, Normal S1 S2 Assessment And Plan - Current Problems (Diagnosis) (1) Shock Current Visit: Yes Status: Acute Plan: Patient's condition is stable still requiring low-dose Levophed and Precedex trial of low-dose hydrocortisone agree with blood transfusion patient has mild hyponatremia currently on TPN mild hyponatremia continue to monitor check ammonia levels probably has underlying encephalopathy requiring only minimal sedation
[2023-08-15] MEDS ORDERED: LORazepam 2 MG/ML VIAL ONE (14:43)
[2023-08-15] MEDS: AA 5%/D20W/ELECTROLYTES-TPN 2,000 ML IV SCH (17:00)
[2023-08-15] MEDS ORDERED: AA 5%/D20W/ELECTROLYTES-TPN 2,000 ML IV SCH (17:00)
[2023-08-16] MEDS ORDERED: LORazepam 2 MG/ML VIAL ONE (00:23)
[2023-08-16] MEDS ORDERED: DEXMEDETOMIDINE HCL 200 MCG/2 ML VIAL ONE (01:05)
[2023-08-16] MEDS ORDERED: NA CHLORIDE 0.9% 500 ML ONE (01:05)
[2023-08-16 07:44] LABS: Absolute Lymphocytes (CBC) 0.6 K/uL (0.7-4.9); Lymphocytes % 14.9 % (15.3-44.8); MCV 95.4 fL (80-100); MPV 9.3 fL (7.6-11.3); Platelets 64 thou/uL (152-406); RBC Red Blood Cell Count 2.62 M/uL (4.33-5.43)
[2023-08-16 07:48] LABS: Albumin 1.8 g/dL (3.4-5.0); Bilirubin Total 2.5 mg/dL (0.2-1.0); Magnesium 2.2 mg/dL (1.6-2.4); Potassium 3.9 mEq/L (3.5-5.1); Protein, Total 5.7 g/dL (6.4-8.2)
--- NOTE | 2023-08-16 08:31 | RAD REPORT ---
EXAM DESCRIPTION: RADChest Single View08/16/2023 4:27 am CLINICAL HISTORY: Resp failure COMPARISON: Chest Single View dated 08/15/2023; Chest Single View dated 08/14/2023; Chest Single View dated 08/13/2023; Chest Single View dated 08/12/2023 TECHNIQUE: Portable AP view of the chest. FINDINGS: Endotracheal tube and right arm PICC are unchanged in position. Partial improvement of miguel tral interstitial prominence and hazy airspace opacification. No new focal airspace opacities No pne umothorax or effusion. The cardiomediastinal contours are unremarkable. IMPRESSION: Partial improvement of central interstitial prominence and hazy airspace opacification.
[2023-08-16] MEDS ORDERED: THIAMINE 200 MG/2 ML INJ ONE ×2 (08:34→20:48)
[2023-08-16] MEDS ORDERED: HYDROCORTISONE SUC 100 MG INJ ONE ×2 (08:35→20:49)
--- NOTE | 2023-08-16 10:11 | P.PN ---
Date of Service: 08/16/23 Subjective: moved extremities yesterday when precedex weaned down remains on low dose precedex/levophed initial hgb this morning reported as lower, but repeat was better hgb stable last 24 hours. No obvious bleeding remains on ventilator - 28% FiO2 ROS: unable to obtain due to mental status / intubation Physical Exam: GEN: intubated and on mechanical ventilation HEENT: Normal conjunctiva, sclera anicteric CV: Regular rate and rhythm, trace b/l edema Pulm: on mechanical ventilator 28% FiO2, diminished at bases b/l ABD: Soft, nondistended, decreased bowel sounds Neuro: Sedated PICC in place vitals reviewed Problem List: GI bleed/acute blood loss anemia secondary to Esophageal varices bleed Hemorrhagic shock secondary to above Coagulopathy suspect Hepatic encephalopathy Hypernatremia Acute hypoxic respiratory failure, intubated for airway protection NSTEMI Alcohol abuse Thrombocytopenia Cocaine abuse ESHA/metabolic acidosis, resolved GI bleed/acute blood loss anemia likely secondary to Esophageal varices bleed Hemorrhagic shock Coagulopathy Hepatic encephalopathy Hypernatremia hgb noted to be 5 on admission s/p 5 total uPRBC this hospitalization so far (4 on 08/11, 1 on 08/15) Hemoglobin has been between 7-8 last 24-48 hours remains on low dose levophed/precedex; wean as tolerated Dr. Colon - GI consulted s/p emergent EGD and banding of esophageal varices. (08/11) Continue IV Protonix drip, octreotide drip. Keep NPO. Anticipating prolonged n.p.o. status continue TPN; started 08/14 P.O. nadolol once blood pressure has improved and patient is off pressors. Continue IV Rocephin (08/12-). added 08/12 prophylactically Status post FFP for coagulopathy. Ammonia level markedly elevated on admission, much improved on recheck No lactulose for now given NPO. status and NG tube contraindication given bleeding esophageal varices, may need enema hypernatremia, pt with multiple infusions with NS, discussed with Dr. Cleaning, who stated will order dextrose fluids Acute respiratory failure with hypoxia/metabolic encephalopathy Patient intubated for airway protection. Continue mechanical ventilation. remains on levophed/precedex Wean vent / pressors as tolerated NSTEMI Troponins trended down likely demand ischemia secondary to anemia and vasospasms from cocaine abuse Patient is not a candidate for anticoagulation at this time. Echo (08/14): 67%EF, normal wall motion, right atrial pressure 5-10mmHg, insufficient TR Cardiology consulted Alcohol abuse Coagulopathy Thrombocytopenia Cocaine abuse Liver failure secondary to liver cirrhosis likely and component of hypotension / hemorrhagic shock. remains on levophed Status post FFP. Daily CBC Platelet transfusion PRN continue IV thiamine, IV folic acid. Toxicology screen positive for cocaine ESHA/metabolic acidosis, resolved Resolved. Continue TPN Watch for anasarca and ascites. VTE: SCD given bleed Code: Full Dispo: continue ICU level of care updated at bedside. stated patient's parents are applying for an emergency visa through their consulate and stated the consulate office requires a letter from the patient's attending physician. Discussed with that I can't determine the need or appropriateness for visa approvals, but with her permission as the patient's , I can provide a statement reflecting patient's current status - critically ill in the ICU She expressed understanding, and a signed letter was given to the patient's - who stated she will take a photo and send it to the patient's parents to provide to the consulate office. The signed letter was printed on hospital letterhead, however this was on my own behalf as the patient's attending physician, and not on behalf of the hospital.
--- NOTE | 2023-08-16 12:02 | P.PN ---
Subjective Date of Service: 08/16/23 Chief Complaint: Respiratory failure patient on a ventilator Patient is off vasopressors unresponsive Review of Systems is unable to be obtained Physical Examination - Vital Signs Temperature: 97.9 F Blood Pressure: 112/65 Pulse: 68 Respirations: 18 Pulse Ox (%): 100 - Physical Exam General: Unresponsive Neck: Supple Cardiovascular: No edema, Regular rate/rhythm Assessment And Plan - Current Problems (Diagnosis) (1) Shock Current Visit: Yes Status: Acute Plan: Patient's shock has resolved (2) Respiratory failure Current Visit: Yes Status: Acute Plan: Patient is becoming progressively more hyponatremic patient's hemoglobin is stable no further bleeding plan to extubate once more awake patient's ammonia level has declined to 62 on minimal Precedex start patient on hypotonic fluids chest x-ray clear endotracheal tube satisfactory Qualifiers: Chronicity: acute
[2023-08-16] MEDS: D5 0.2 NS 1,000 ML IV SCH ×2 (12:15→15:00)
[2023-08-16] MEDS ORDERED: D5 0.45 NS 1,000 ML IV SCH (14:00)
[2023-08-16] MEDS ORDERED: D10W 250 ML BAG IV PRN (15:24)
[2023-08-16] MEDS ORDERED: GLUCAGON 1 MG/VIAL IM PRN (15:24)
[2023-08-16] MEDS ORDERED: INSULIN REGULAR (HUMAN) 100 UNIT/ML ONE (16:57)
[2023-08-16] MEDS: INSULIN REGULAR (HUMAN) 100 UNIT/ML SQ SCH (16:58)
[2023-08-16] MEDS ORDERED: AA 5%/D20W/ELECTROLYTES-TPN 2,000 ML, Lipids 20% 250 ML with MULTIVITAMINS INJ 10 ML IV SCH (17:00)
[2023-08-16] MEDS: AMINO ACIDS 5 %/DEXTROSE 20 % 2,000 ML, Lipids 20% 250 ML with MULTIVITAMINS INJ 10 ML,... IV SCH (17:29)
[2023-08-17] MEDS ORDERED: INSULIN REGULAR (HUMAN) 100 UNIT/ML ONE ×4 (01:04→17:53)
[2023-08-17] MEDS ORDERED: DEXMEDETOMIDINE HCL 200 MCG/2 ML VIAL ONE (03:19)
[2023-08-17] MEDS ORDERED: NA CHLORIDE 0.9% 500 ML ONE (03:19)
[2023-08-17 05:29] LABS: Absolute Lymphocytes (CBC) 0.5 K/uL (0.7-4.9); Hematocrit 24.1 % (39.6-49.0); Lymphocytes % 11.5 % (15.3-44.8); MCV 95.6 fL (80-100); MPV 9.3 fL (7.6-11.3); Platelets 54 thou/uL (152-406); RBC Red Blood Cell Count 2.52 M/uL (4.33-5.43)
[2023-08-17 05:34] LABS: Protime INR 1.77
[2023-08-17 05:51] LABS: Albumin 1.7 g/dL (3.4-5.0); Bilirubin Total 1.9 mg/dL (0.2-1.0); Phosphorus 2.3 mg/dL (2.5-4.9); Potassium 3.2 mEq/L (3.5-5.1); Protein, Total 5.5 g/dL (6.4-8.2)
--- NOTE | 2023-08-17 07:31 | P.PN ---
Date of Service: 08/17/23 Subjective: extubated yesterday. currently tolerating 4L NC hgb stable last 24 hours. No obvious bleeding Off levophed since 08/16. given precedex overnight due to agitation agitated / confused throughout the night afebrile ROS: unable to fully obtain due to mental status Physical Exam: GEN: Confused, sedated on precedex HEENT: Normal conjunctiva, sclera anicteric CV: Regular rate and rhythm, trace b/l edema Pulm: labored respirations on 4L NC, diminished at bases b/l ABD: Soft, nondistended, decreased bowel sounds Neuro: moves extremities, sedated PICC in place vitals reviewed Problem List: GI bleed/acute blood loss anemia secondary to Esophageal varices bleed Hemorrhagic shock secondary to above ?Adynamic ileus Coagulopathy, s/p FFP suspect Hepatic encephalopathy Hypernatremia Acute hypoxic respiratory failure, intubated for airway protection NSTEMI Alcohol abuse Thrombocytopenia Cocaine abuse ESHA/metabolic acidosis, resolved GI bleed/acute blood loss anemia likely secondary to Esophageal varices bleed Hemorrhagic shock secondary to above ?Adynamic ileus Coagulopathy, s/p FFP suspect Hepatic encephalopathy Hypernatremia hgb noted to be 5 on admission. s/p 5 total uPRBC so far (4 on 08/11, 1 on 08/15) Hemoglobin stable last [address] Colon - GI consulted s/p emergent EGD and banding of esophageal varices. (08/11) Continue IV Protonix drip, octreotide drip. Keep NPO. Anticipating prolonged n.p.o. 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 (1+ GPR, 1+GPC on stain) Continue IV Rocephin (08/12-). added 08/12 prophylactically KUB xray (08/17): probable adynamic ileus, less likely obstruction. Status post FFP for coagulopathy. off levophed since 08/16 am; given low dose precedex overnight switch to P.O. nadolol once blood pressure has improved and patient is off pressors. Ammonia level markedly elevated on admission, much improved on recheck No lactulose for now given NPO. status and NG tube contraindication given bleeding esophageal varices, may need enema hypernatremia, pt with multiple infusions with NS, discussed with Dr. Cleaning, switched to dextrose fluids 08/16. Acute hypoxic respiratory failure, intubated for airway protection Patient previously intubated for airway protection. Extubated 08/16. currently tolerating 4L NC off levophed since 08/16 am; given low dose precedex overnight NSTEMI Troponins trended down likely demand ischemia secondary to anemia and vasospasms from cocaine abuse Patient is not a candidate for anticoagulation at this time. Echo (08/14): 67%EF, normal wall motion, right atrial pressure 5-10mmHg, insufficient TR Cardiology consulted Alcohol abuse Coagulopathy Thrombocytopenia Cocaine abuse Liver failure secondary to liver cirrhosis likely and component of hypotension / hemorrhagic shock. off levophed since 08/16 Status post FFP. Daily CBC Platelet transfusion PRN continue IV thiamine, IV folic acid. Toxicology screen positive for cocaine ESHA/metabolic acidosis, resolved Resolved. Continue TPN Watch for anasarca and ascites. VTE: SCD given bleed Code: Full Dispo: continue ICU level of care updated at bedside.
[2023-08-17] MEDS ORDERED: CEFTRIAXONE 1000 MG/VIAL ONE (08:05)
[2023-08-17] MEDS ORDERED: HYDROCORTISONE SUC 100 MG INJ ONE ×2 (08:21→20:38)
[2023-08-17] MEDS ORDERED: THIAMINE 200 MG/2 ML INJ ONE ×3 (08:21→20:38)
--- NOTE | 2023-08-17 09:17 | RAD REPORT ---
EXAM DESCRIPTION: RAD - Abdomen 1 View (KUB) - 08/17/2023 8:40 am CLINICAL HISTORY: Abdomen pain FINDINGS: Multiple loops of mildly dilated small bowel. Air within the colon is diminished. These findings probably represent an adynamic ileus, less likely an obstruction. If the patient's symptoms persist followup abdominal plain film series would be recommended
--- NOTE | 2023-08-17 17:55 | P.PN ---
Subjective Date of Service: 08/14/23 Chief Complaint: UGI bleed, hematemesis, melena, Respiratory failure patient on a ventilator Subjective: Improving Review of Systems 10-point ROS is otherwise unremarkable General: Weakness, Malaise Neurological: Other (Hepatic encephalopathy grade 4 ) Physical Examination - Vital Signs Temperature: 98.3 F Blood Pressure: 134/96 Pulse: 73 Respirations: 15 Pulse Ox (%): 100 - Physical Exam General: Disheveled, Other (hepatic encephalopathy grade 4 ) HEENT: Atraumatic, Normocephalic Neck: Supple Cardiovascular: Other (tachycardia) Gastrointestinal: Soft and benign, No tenderness Neurological: Other (hep enceph grad 4, some response to painful stimuli) Assessment And Plan - Current Problems (Diagnosis) (1) Upper GI bleed Current Visit: Yes Status: Acute Comment: Improved, s/p EGD with esophageal varicies banding (2) Hematemesis Current Visit: Yes Status: Acute (3) Melena Current Visit: Yes Status: Acute (4) Anemia Current Visit: Yes Status: Acute (5) Esophageal varices Current Visit: Yes Status: Acute (6) Cirrhosis, alcoholic Current Visit: Yes Status: Acute (7) Alcohol abuse Current Visit: Yes Status: Acute (8) Hepatic encephalopathy Current Visit: Yes Status: Acute - Plan REC: 1) goal hgb 7-8 with seriall H&Hs 2) continue IV Octreotide 3) continue PPI 4) consider PPN or TPN 5) BDZ prn and/or Precidex 6) Thiamine and Folate 7) continue IV Cefriaxone
--- NOTE | 2023-08-17 18:09 | P.PN ---
Subjective Date of Service: 08/15/23 Chief Complaint: UGI bleed, hematemesis, melena, Respiratory failure patient on a ventilator Subjective: Improving (Hgb improving 7.3->7.5, within goal range 7-8. No GI bleeding noted since EGD with esophageal banding. TPN started. IVFs stopped with mild abdominal distention and trace LLE.) Review of Systems 10-point ROS is otherwise unremarkable General: Weakness, Malaise, Other Cardiovascular: Edema Gastrointestinal: Other (early ascites on IVFs NS 100 cc/hour discontinued. ) Neurological: Other (Hepatic enceph grade 4) Physical Examination - Vital Signs Temperature: 98.3 F Blood Pressure: 134/96 Pulse: 73 Respirations: 15 Pulse Ox (%): 100 - Physical Exam General: Disheveled, Delirious HEENT: Atraumatic, Normocephalic Neck: Supple Respiratory: Normal air movement (on mech vent) Gastrointestinal: Soft and benign, No tenderness, Ascites (mild) Neurological: Other (Hep enceph grade 4) Assessment And Plan - Current Problems (Diagnosis) (1) Upper GI bleed Current Visit: Yes Status: Acute Comment: Improved, s/p EGD with esophageal varicies banding (2) Hematemesis Current Visit: Yes Status: Acute (3) Melena Current Visit: Yes Status: Acute (4) Anemia Current Visit: Yes Status: Acute (5) Esophageal varices Current Visit: Yes Status: Acute (6) Cirrhosis, alcoholic Current Visit: Yes Status: Acute (7) Alcohol abuse Current Visit: Yes Status: Acute (8) Hepatic encephalopathy Current Visit: Yes Status: Acute - Plan REC: 1) goal hgb 7-8 with seriall H&Hs 2) continue IV Octreotide 3) continue PPI 4) consider PPN or TPN 5) BDZ prn and/or Precidex 6) Thiamine and Folate 7) continue IV Cefriaxone
[2023-08-17] MEDS: AMINO ACIDS 5 %/DEXTROSE 20 % 2,000 ML IV SCH (18:11)
--- NOTE | 2023-08-17 18:13 | P.PN ---
Subjective Date of Service: 08/16/23 Chief Complaint: UGI bleed, hematemesis, melena, Respiratory failure patient on a ventilator Subjective: Improving (TPN ongoing with slight increase in AST/ALT. No GI bleeding, no stools. Intubated on mechanical vent since ER admission; pulm trying to wean off vent.) Review of Systems General: Weakness, Malaise Gastrointestinal: Distention (mild with mild ascites), Other Neurological: Other (hep enceph grade 4 ) Physical Examination - Vital Signs Temperature: 98.3 F Blood Pressure: 134/96 Pulse: 73 Respirations: 15 Pulse Ox (%): 100 - Physical Exam General: Disheveled HEENT: Atraumatic, Normocephalic Neck: Supple Respiratory: Normal air movement Cardiovascular: Normal pulses Gastrointestinal: No tenderness, No rebound, No guarding, Distended (mild ) Neurological: Other (hep enceph grade 4 ) Assessment And Plan - Current Problems (Diagnosis) (1) Upper GI bleed Current Visit: Yes Status: Acute Comment: Improved, s/p EGD with esophageal varicies banding (2) Hematemesis Current Visit: Yes Status: Acute (3) Melena Current Visit: Yes Status: Acute (4) Anemia Current Visit: Yes Status: Acute (5) Esophageal varices Current Visit: Yes Status: Acute (6) Cirrhosis, alcoholic Current Visit: Yes Status: Acute (7) Alcohol abuse Current Visit: Yes Status: Acute (8) Hepatic encephalopathy Current Visit: Yes Status: Acute - Plan REC: 1) goal hgb 7-8 with seriall H&Hs 2) continue IV Octreotide, wean off at day 5 3) continue PPI, change to bid dosing 4) continue TPN 5) BDZ prn and/or Precidex 6) Thiamine and Folate 7) continue IV Cefriaxone
--- NOTE | 2023-08-17 18:16 | P.PN ---
Subjective Date of Service: 08/17/23 Chief Complaint: UGI bleed, hematemesis, melena, Respiratory failure patient on a ventilator Subjective: Improving (Extubated. No GI bleeding. Still with probable DTs and hepatic encephalopathy, uncooperative, agitated, confused.) Physical Examination - Vital Signs Temperature: 98.3 F Blood Pressure: 134/96 Pulse: 73 Respirations: 15 Pulse Ox (%): 100 Assessment And Plan - Current Problems (Diagnosis) (1) Upper GI bleed Current Visit: Yes Status: Acute Comment: Improved, s/p EGD with esophageal varicies banding (2) Hematemesis Current Visit: Yes Status: Acute (3) Melena Current Visit: Yes Status: Acute (4) Anemia Current Visit: Yes Status: Acute (5) Esophageal varices Current Visit: Yes Status: Acute (6) Cirrhosis, alcoholic Current Visit: Yes Status: Acute (7) Alcohol abuse Current Visit: Yes Status: Acute (8) Hepatic encephalopathy Current Visit: Yes Status: Acute - Plan REC: 1) goal hgb 7-8 with seriall H&Hs 2) continue IV Octreotide, wean off at day 5 3) continue PPI, change to bid dosing 4) continue TPN 5) BDZ prn and/or Precidex 6) Thiamine and Folate 7) continue IV Cefriaxone 8) trial ice chips / sips water and speech pathology bedside swallow eval when more coherent, then Lactulose / Xifaxan
[2023-08-17] MEDS ORDERED: LORazepam 2 MG/ML VIAL ONE (23:59)
[2023-08-18] MEDS ORDERED: INSULIN REGULAR (HUMAN) 100 UNIT/ML ONE ×5 (00:47→23:53)
[2023-08-18 05:29] LABS: Absolute Lymphocytes (CBC) 0.8 K/uL (0.7-4.9); Hematocrit 23.9 % (39.6-49.0); Lymphocytes % 20.3 % (15.3-44.8); MCV 95.6 fL (80-100); MPV 10.1 fL (7.6-11.3); Platelets 54 thou/uL (152-406)
[2023-08-18 05:49] LABS: Albumin 1.7 g/dL (3.4-5.0); Bilirubin Total 1.9 mg/dL (0.2-1.0); Potassium 3.2 mEq/L (3.5-5.1); Protein, Total 5.5 g/dL (6.4-8.2)
[2023-08-18 06:23] LABS: Anisocytosis 1+; Blood Morphology Comment NOTED (NOT SEEN); Platelet Estimate DECR; White Blood Cell Scan OK (OK)
--- NOTE | 2023-08-18 07:31 | RAD REPORT ---
EXAM DESCRIPTION: RAD - Abdomen 1 View (KUB) - 08/18/2023 4:22 am CLINICAL HISTORY: Abdomen pain FINDINGS: Air is present throughout mildly dilated small bowel. Air within the colon is diminished. No significant change since prior x-ray Most likely this represents an ileus, less likely partial small bowel obstruction
--- NOTE | 2023-08-18 08:39 | P.PN ---
Date of Service: 08/18/23 Subjective: sedated on precedex secondary to agitation / combative. +restrained overnight / received ativan hgb stable afebrile no BM overnight per report mumbles to answers, able to make out some words nods yes when asked if his abdomen is uncomfortable states his name on precedex ROS: unable to fully obtain due to mental status Physical Exam: GEN: Confused, sedated on precedex/ativan HEENT: Normal conjunctiva, sclera anicteric CV: Regular rate and rhythm, trace to 1+ edema in all extremities Pulm: nonlabored respirations on room air, clear bilaterally ABD: mild disstention, decreased bowel sounds Neuro: moves extremities, sedated PICC in place vitals reviewed Problem List: GI bleed/acute blood loss anemia secondary to Esophageal varices bleed Hemorrhagic shock secondary to above ?Adynamic ileus Coagulopathy, s/p FFP suspect Hepatic encephalopathy Hypernatremia Hypophosphatemia Acute hypoxic respiratory failure, intubated for airway protection NSTEMI Alcohol abuse Thrombocytopenia Cocaine abuse ESHA/metabolic acidosis, resolved GI bleed/acute blood loss anemia likely secondary to Esophageal varices bleed Hemorrhagic shock secondary to above Adynamic ileus Coagulopathy, s/p FFP suspect Hepatic encephalopathy Hypernatremia Hypophosphatemia hgb noted to be 5 on admission. s/p 5 total uPRBC so far (4 on 08/11, 1 on 08/15) Hemoglobin stable last [address] Colon - GI consulted s/p emergent EGD and banding of esophageal varices. (08/11) Continue IV Protonix drip wean octreotide drip per Dr. Colon continue TPN; started 08/14 aspiration precautions, if patient more awake / sitting up, can try sips of clears per Dr. Colon 08/17 Blood cx (08/13): NGTD Sputum cx (08/13): Staph Aureus. Continue IV Rocephin (08/12-). added 08/12 prophylactically KUB xray (08/17): probable adynamic ileus, less likely obstruction. repeat KUB (08/18): without significant change ok for sips avoid NGT Status post FFP for coagulopathy. off levophed since 08/16 am; remains on low dose precedex for agitation switch to P.O. nadolol once blood pressure has improved and patient is off pressors. Ammonia level markedly elevated on admission, much improved on recheck No lactulose for now given NPO. status and NG tube contraindication given bleeding esophageal varices, may need enema hypernatremia, pt with multiple infusions with NS, discussed with Dr. Cleaning, switched to dextrose fluids 08/16. Acute hypoxic respiratory failure, intubated for airway protection Patient previously intubated for airway protection. Extubated 08/16. currently tolerating room air off levophed since 08/16 am; remains on low dose precedex for agitation NSTEMI Troponins trended down likely demand ischemia secondary to anemia and vasospasms from cocaine abuse Patient is not a candidate for anticoagulation at this time. Echo (08/14): 67%EF, normal wall motion, right atrial pressure 5-10mmHg, insufficient TR Cardiology consulted Alcohol abuse Coagulopathy Thrombocytopenia Cocaine abuse Liver failure secondary to liver cirrhosis likely and component of hypotension / hemorrhagic shock. off levophed since 08/16. Status post FFP. Daily CBC Platelet transfusion PRN continue IV thiamine, IV folic acid. Toxicology screen positive for cocaine ESHA/metabolic acidosis, resolved Resolved. Continue TPN Watch for anasarca and ascites. VTE: SCD given bleed Code: Full Dispo: continue ICU level of care anticipate ~4-5 days updated at bedside.
[2023-08-18] MEDS ORDERED: CEFTRIAXONE 1000 MG/VIAL ONE (09:04)
[2023-08-18] MEDS ORDERED: HYDROCORTISONE SUC 100 MG INJ ONE ×2 (09:05→21:13)
[2023-08-18] MEDS ORDERED: THIAMINE 200 MG/2 ML INJ ONE ×2 (09:05→21:13)
[2023-08-18] MEDS ORDERED: NA CHLORIDE 0.9% 0 ML ONE (09:06)
[2023-08-18] MEDS ORDERED: NA CHLORIDE 0.9% 50 ML ONE (09:07)
[2023-08-18] MEDS ORDERED: LORazepam 2 MG/ML VIAL ONE (14:58)
[2023-08-18] MEDS: AMINO ACIDS 5 %/DEXTROSE 20 % 2,000 ML, Lipids 20% 250 ML with MULTIVITAMINS INJ 10 ML,... IV SCH (17:57)
[2023-08-18] MEDS: INSULIN REGULAR (HUMAN) 100 UNIT/ML SQ SCH (23:56)
[2023-08-19 05:04] LABS: Hematocrit 24.7 % (39.6-49.0); MCV 95.7 fL (80-100); MPV 9.6 fL (7.6-11.3); Platelets 52 thou/uL (152-406); RBC Red Blood Cell Count 2.58 M/uL (4.33-5.43)
[2023-08-19 05:28] LABS: Albumin 1.7 g/dL (3.4-5.0); Bilirubin Total 2.3 mg/dL (0.2-1.0); Magnesium 1.9 mg/dL (1.6-2.4); Phosphorus 2.5 mg/dL (2.5-4.9); Potassium 2.8 mEq/L (3.5-5.1); Protein, Total 5.5 g/dL (6.4-8.2)
[2023-08-19] MEDS ORDERED: INSULIN REGULAR (HUMAN) 100 UNIT/ML ONE ×4 (06:40→23:37)
--- NOTE | 2023-08-19 07:18 | RAD REPORT ---
EXAM DESCRIPTION: RAD - Abdomen 1 View (KUB) - 08/19/2023 6:42 am CLINICAL HISTORY: ileus f/u COMPARISON: Abdomen 1 View (KUB) dated 08/18/2023; Abdomen 1 View (KUB) dated 08/17/2023 FINDINGS: Diffusely dilated small bowel without significant interval change. No acute osseous abnorm ality.Visualized lungs are unremarkable.No abnormal calcifications. IMPRESSION: No significant change with diffusely dilated small bowel consistent with an ileus.
[2023-08-19] MEDS ORDERED: INSULIN GLARGINE 100 UNIT/ML SQ ONE (08:08)
[2023-08-19] MEDS ORDERED: HYDROCORTISONE SUC 100 MG INJ ONE ×2 (08:09→19:58)
[2023-08-19] MEDS ORDERED: THIAMINE 200 MG/2 ML INJ ONE ×2 (08:09→19:57)
[2023-08-19] MEDS: MAGNESIUM SULFATE 1 gm IVPB 1 GM/100 ML BAG IV ONE (08:14)
[2023-08-19] MEDS: INSULIN GLARGINE 100 UNIT/ML SQ SCH (08:14)
[2023-08-19] MEDS: KCL 20 MEQ/100 mL IVPB 20 MEQ/100 ML BAG IV SCH ×2 (08:14→17:27)
[2023-08-19] MEDS ORDERED: KCL 20 MEQ/100 mL IVPB 100 ML IV ONE ×3 (09:06→17:25)
--- NOTE | 2023-08-19 12:23 | P.PN ---
Date of Service: 08/19/23 Subjective: unable to wean off precedex secondary to agitation. +restrained family updated at bedside. Patient able to make out few words intermittently seems to do better when / family around no acute events overnight afebrile ROS: unable to fully obtain due to mental status / sedation Physical Exam: GEN: Confused, sedated on precedex/ativan HEENT: Normal conjunctiva, sclera anicteric CV: Regular rate and rhythm, trace to 1+ edema in all extremities Pulm: nonlabored respirations on room air, clear bilaterally, snoring ABD: mild-mod distention, decreased bowel sounds Neuro: moves extremities, sedated PICC in place vitals reviewed Problem List: GI bleed/acute blood loss anemia secondary to Esophageal varices bleed Hemorrhagic shock secondary to above Adynamic ileus Coagulopathy, s/p FFP suspect Hepatic encephalopathy Hypernatremia Hypophosphatemia Acute hypoxic respiratory failure, intubated for airway protection; resolved NSTEMI Alcohol abuse Thrombocytopenia Cocaine abuse ESHA/metabolic acidosis, resolved GI bleed/acute blood loss anemia likely secondary to Esophageal varices bleed Hemorrhagic shock secondary to above Adynamic ileus Coagulopathy, s/p FFP suspect Hepatic encephalopathy Hypernatremia Hypophosphatemia hgb noted to be 5 on admission. s/p 5 total uPRBC so far (4 on 08/11, 1 on 08/15) hgb stable Dr. Colon - GI consulted s/p emergent EGD and banding of esophageal varices. (08/11) protonix drip started 08/13, change to BID dosing 08/19 s/p ~6 days octreotide drip; start wean 08/19 - half dose q12hr until off within next 48hrs continue TPN; started 08/14 aspiration precautions, if patient more awake / sitting up, can try sips of clears - discussed with Dr. Colon 08/17 may help stimulate intestinal movement Blood cx (08/13): NGTD Sputum cx (08/13): Staph Aureus Continue IV Rocephin (08/12-). added 08/12 prophylactically KUB xray (08/17): probable adynamic ileus, less likely obstruction. repeat KUB (08/19): without significant change ok for sips / ice chips - with aspiration precautions avoid NGT Status post FFP for coagulopathy. off levophed since 08/16 am; remains on low dose precedex for agitation switch to P.O. nadolol once blood pressure has improved and patient is off pressors. Ammonia level markedly elevated on admission, much improved on recheck No lactulose for now given NPO. status and NG tube contraindication given bleeding esophageal varices, may need enema - avoiding due to ileus hypernatremia, pt with multiple infusions with NS, discussed with Dr. Cleaning, switched to dextrose fluids 08/16. improved Acute hypoxic respiratory failure, intubated for airway protection (resolved) Patient previously intubated for airway protection. Extubated 08/16. currently tolerating room air off levophed since 08/16 am; remains on low dose precedex for agitation NSTEMI Troponins trended down; Cardiology consulted - likely demand ischemia secondary to anemia and vasospasms from cocaine abuse Echo (08/14): 67%EF, normal wall motion, right atrial pressure 5-10mmHg, insufficient TR Alcohol abuse Coagulopathy Thrombocytopenia Cocaine abuse acute Liver failure secondary to liver cirrhosis likely and component of hypotension / hemorrhagic shock. LFTs improved off levophed since 08/16. Status post FFP. Platelet transfusion PRN continue IV thiamine, IV folic acid. Toxicology screen positive for cocaine ESHA/metabolic acidosis, resolved Resolved. Continue TPN Watch for anasarca and ascites. VTE: SCD given bleed Code: Full Dispo: continue ICU level of care anticipate ~3-4 days in hospital updated at bedside.
[2023-08-19] MEDS: OCTREOTIDE 500 MCG in NA CHLORIDE 0.9% 500 ML IV SCH (15:00)
[2023-08-19] MEDS: POTASSIUM PHOS IV SCH (16:11)
[2023-08-19] MEDS: AMINO ACIDS IV SCH (16:11)
[2023-08-19] MEDS: MAGNESIUM IV SCH (16:11)
[2023-08-19] MEDS: DEXTROSE IV SCH (16:11)
[2023-08-19] MEDS: [UNRECOGNIZED DRUG - OTHER] IV SCH (16:11)
[2023-08-19 16:38] LABS: Potassium 3.3 mEq/L (3.5-5.1)
[2023-08-19] MEDS: PANTOPRAZOLE 40 MG INJ IVP SCH (20:30)
[2023-08-20] MEDS: D5 0.2 NS 500 ML IV SCH (00:55)
[2023-08-20 05:06] VITALS: BMI 40.4
[2023-08-20 05:08] LABS: Hematocrit 25.2 % (39.6-49.0); MCV 95.8 fL (80-100); MPV 10.6 fL (7.6-11.3); Platelets 59 thou/uL (152-406); RBC Red Blood Cell Count 2.63 M/uL (4.33-5.43)
[2023-08-20 05:31] LABS: Albumin 1.6 g/dL (3.4-5.0); Bilirubin Total 2.9 mg/dL (0.2-1.0); Phosphorus 2.6 mg/dL (2.5-4.9); Protein, Total 5.3 g/dL (6.4-8.2)
[2023-08-20 05:35] LABS: Magnesium 2.1 mg/dL (1.6-2.4); Potassium 3.6 mEq/L (3.5-5.1)
[2023-08-20] MEDS ORDERED: INSULIN REGULAR (HUMAN) 100 UNIT/ML ONE ×4 (05:54→23:48)
[2023-08-20 06:18] LABS: Anisocytosis 1+; Blood Morphology Comment NOTED (NOT SEEN); Platelet Estimate DECR; Polychromasia 1+; White Blood Cell Scan OK (OK)
--- NOTE | 2023-08-20 07:42 | P.PN ---
Date of Service: 08/20/23 Subjective: patient more calm / cooperative last 24 hrs. Restraints removed no acute events overnight hgb stable. no bleeds afebrile thirsty, abdomen distended, feels like needs to pass gas / BM sat up to bedside commode later this morning and passed flatus ROS: 10 point ROS as noted above, otherwise negative Physical Exam: GEN: alert, calm, cooperative HEENT: Normal conjunctiva, sclera anicteric CV: Regular rate and rhythm, trace edema Pulm: non-labored respirations on room air, clear bilaterally ABD: mod distention, decreased bowel sounds Neuro: moves extremities, normal speech PICC in place vitals reviewed Problem List: GI bleed/acute blood loss anemia secondary to Esophageal varices bleed Hemorrhagic shock secondary to above Adynamic ileus Coagulopathy, s/p FFP suspect Hepatic encephalopathy Hypernatremia, improved Hypophosphatemia, improved Acute hypoxic respiratory failure, intubated for airway protection (resolved) NSTEMI Alcohol abuse Thrombocytopenia Cocaine abuse ESHA/metabolic acidosis, resolved GI bleed/acute blood loss anemia likely secondary to Esophageal varices bleed Hemorrhagic shock secondary to above Adynamic ileus Coagulopathy, s/p FFP suspect Hepatic encephalopathy Hypernatremia, improved Hypophosphatemia, improved hgb noted to be 5 on admission. s/p 5 total uPRBC so far (4 on 08/11, 1 on 08/15) hgb stable Dr. Colon - GI consulted s/p emergent EGD and banding of esophageal varices. (08/11) continue protonix BID; s/p protonix drip (08/13-08/19) s/p ~6 days octreotide drip; continue to wean - half dose q12hr until off within next 24hrs continue TPN; started 08/14 aspiration precautions, if patient more awake / sitting up, can try sips of clears - discussed with Dr. Colon 08/17 may help stimulate intestinal movement Blood cx (08/13): NGTD Sputum cx (08/13): Staph Aureus Continue IV Rocephin (08/12-). added 08/12 prophylactically KUB xray (08/17): probable adynamic ileus, less likely obstruction. repeat KUB (08/19): without significant change ok for sips / ice chips - with aspiration precautions avoid NGT Status post FFP for coagulopathy. off levophed since 08/16 am; remains on low dose precedex for agitation switch to P.O. nadolol once blood pressure has improved and patient is off pressors. Ammonia level markedly elevated on admission, much improved on recheck No lactulose for now given NPO. status and NG tube contraindication given bleeding esophageal varices, may need enema - avoiding due to ileus hypernatremia, pt with multiple infusions with NS, discussed with Dr. Cleaning, switched to dextrose fluids 08/16. improved Acute hypoxic respiratory failure, intubated for airway protection (resolved) Patient previously intubated for airway protection. Extubated 08/16. currently tolerating room air off levophed since 08/16 am; off precedex since 08/19 NSTEMI Troponins trended down; Cardiology consulted - likely demand ischemia secondary to anemia and vasospasms from cocaine abuse Echo (08/14): 67%EF, normal wall motion, right atrial pressure 5-10mmHg, insufficient TR Alcohol abuse Coagulopathy Thrombocytopenia Cocaine abuse acute Liver failure secondary to liver cirrhosis likely and component of hypotension / hemorrhagic shock. LFTs improved off levophed since 08/16. Status post FFP. Platelet transfusion PRN continue IV thiamine, IV folic acid. Toxicology screen positive for cocaine ESHA/metabolic acidosis, resolved Resolved. Continue TPN Watch for anasarca and ascites. VTE: SCD given bleed Code: Full Dispo: continue ICU level of care, possible downgrade tomorrow updated at bedside.
[2023-08-20] MEDS ORDERED: CEFTRIAXONE 1000 MG/VIAL ONE (08:08)
[2023-08-20] MEDS ORDERED: HYDROCORTISONE SUC 100 MG INJ ONE ×2 (08:08→20:11)
[2023-08-20] MEDS ORDERED: THIAMINE 200 MG/2 ML INJ ONE ×2 (08:08→20:10)
[2023-08-20] MEDS ORDERED: NA CHLORIDE 0.9% 50 ML ONE (08:09)
[2023-08-20] MEDS ORDERED: INSULIN GLARGINE 100 UNIT/ML SQ ONE (08:47)
[2023-08-21 05:08] LABS: Hematocrit 25.8 % (39.6-49.0); MCV 96.5 fL (80-100); MPV 9.8 fL (7.6-11.3); Platelets 103 thou/uL (152-406); RBC Red Blood Cell Count 2.67 M/uL (4.33-5.43)
[2023-08-21 05:29] LABS: Albumin 1.8 g/dL (3.4-5.0); Bilirubin Total 6.3 mg/dL (0.2-1.0); Phosphorus 2.4 mg/dL (2.5-4.9); Potassium 2.8 mEq/L (3.5-5.1); Protein, Total 5.7 g/dL (6.4-8.2)
[2023-08-21] MEDS ORDERED: INSULIN REGULAR (HUMAN) 100 UNIT/ML ONE ×3 (06:08→16:48)
--- NOTE | 2023-08-21 07:02 | P.PN ---
Date of Service: 08/21/23 Subjective: sinus tachy in 100s; HR up to 140s overnight when ambulating to bsc / with minimal movement no BM yet. trials of clears for lunch passing flatus, KUB improved remains off pressors no abd tenderness afebrile states he is hungry/thirsty ROS: 10 point ROS as noted above, otherwise negative Physical Exam: GEN: alert, calm, cooperative HEENT: Normal conjunctiva, sclera anicteric CV: Sinus tachycardia, trace edema Pulm: non-labored respirations on room air, clear bilaterally ABD: soft, nontender, decreased bowel sounds Neuro: moves extremities, normal speech PICC in place vitals reviewed Problem List: GI bleed/acute blood loss anemia secondary to Esophageal varices bleed Hemorrhagic shock secondary to above Adynamic ileus Coagulopathy, s/p FFP suspect Hepatic encephalopathy Hypernatremia, improved Hypophosphatemia, improved Acute hypoxic respiratory failure, intubated for airway protection (resolved) NSTEMI Alcohol abuse Thrombocytopenia Cocaine abuse ESHA/metabolic acidosis, resolved GI bleed/acute blood loss anemia likely secondary to Esophageal varices bleed Hemorrhagic shock secondary to above Adynamic ileus Coagulopathy, s/p FFP suspect Hepatic encephalopathy Hypernatremia, improved Hypophosphatemia, improved hgb noted to be 5 on admission. s/p 5 total uPRBC so far (4 on 08/11, 1 on 08/15) hgb stable Dr. Colon - GI consulted s/p emergent EGD and banding of esophageal varices. (08/11) continue protonix BID; s/p protonix drip (08/13-08/19) s/p ~6 days octreotide drip (dc'd 08/20) stop TPN 08/21; started 08/14 Blood cx (08/13): NGTD Sputum cx (08/13): Staph Aureus dc rocephiin 08/21, completed ~9 days KUB xray (08/17): probable adynamic ileus, less likely obstruction. repeat KUB (08/21): Improvement from prior exam advance to clear liquids for lunch - with aspiration precautions avoid NGT Liver u/s ordered (08/21): further eval T bili 2.9 -> 6.3 (08/21) Direct bili 3.9 possibly from constipation /ileus, and tpn now passing flatus, advance diet as tolerated, dc tpn repeat lfts in AM, if worse, will get MRCP; discussed with Dr. Colon Status post FFP for coagulopathy. off levophed since 08/16 am; remains on low dose precedex for agitation switch to P.O. nadolol once blood pressure has improved and patient is off pressors. Ammonia level markedly elevated on admission, much improved on recheck No lactulose for now given NPO. status and NG tube contraindication given bleeding esophageal varices, may need enema - avoiding due to ileus hypernatremia, pt with multiple infusions with NS, discussed with Dr. Cleaning, switched to dextrose fluids 08/16. improved Alcohol abuse Coagulopathy Thrombocytopenia Cocaine abuse acute Liver failure secondary to liver cirrhosis likely and component of hyp otension / hemorrhagic shock. off levophed since 08/16. Status post FFP. Platelet transfusion PRN continue IV thiamine, IV folic acid. Toxicology screen positive for cocaine Liver u/s ordered (08/21): further eval T bili 2.9 -> 6.3 (08/21) Direct bili 3.9 Acute hypoxic respiratory failure, intubated for airway protection (resolved) Patient previously intubated for airway protection. Extubated 08/16. currently tolerating room air off levophed since 08/16 am; off precedex since 08/20 NSTEMI Troponins trended down; Cardiology consulted - likely demand ischemia secondary to anemia and vasospasms from cocaine abuse Echo (08/14): 67%EF, normal wall motion, right atrial pressure 5-10mmHg, insufficient TR ESHA/metabolic acidosis, resolved Resolved. Continue TPN Watch for anasarca and ascites. VTE: SCD given bleed Code: Full Dispo: continue ICU level of care, possible downgrade tomorrow elevated tbili, very weak, and very tachy with minimal exertion updated at bedside.
--- NOTE | 2023-08-21 08:12 | RAD REPORT ---
EXAM DESCRIPTION: RAD - Abdomen 1 View (KUB) - 08/21/2023 6:54 am CLINICAL HISTORY: Abdomen pain FINDINGS: Air is present within nondilated small bowel. The bowel caliber has diminished. This is an improvement since the prior exam
[2023-08-21] MEDS ORDERED: INSULIN GLARGINE 100 UNIT/ML SQ ONE (08:21)
[2023-08-21] MEDS ORDERED: THIAMINE 200 MG/2 ML INJ ONE ×2 (08:21→19:47)
[2023-08-21] MEDS ORDERED: HYDROCORTISONE SUC 100 MG INJ ONE (08:21)
[2023-08-21] MEDS: KCL 20 MEQ/100 mL IVPB 100 ML IV SCH (09:22)
--- NOTE | 2023-08-21 11:54 | RAD REPORT ---
EXAM DESCRIPTION: US - Liver Only - 08/21/2023 7:47 am CLINICAL HISTORY: D47.3 COMPARISON: None FINDINGS: Liver has a heterogeneous echotexture. A lesion is not visualized. Hepatopetal flow. The l iver is small with a nodular contour compatible with cirrhosis. A small amount of ascites Evaluation of gallbladder is suboptimal. No gross abnormality visualized Suboptimal evaluation of the common bile duct. Intrahepatic biliary tree is normal caliber IMPRESSION: Cirrhosis Small amount of ascites
[2023-08-21] MEDS ORDERED: KCL 20 MEQ/100 mL IVPB 100 ML IV ONE (12:03)
[2023-08-22] MEDS ORDERED: INSULIN REGULAR (HUMAN) 100 UNIT/ML ONE ×4 (01:48→17:38)
[2023-08-22 06:03] LABS: MCV 97.2 fL (80-100); MPV 9.6 fL (7.6-11.3); Platelets 108 thou/uL (152-406); RBC Red Blood Cell Count 2.57 M/uL (4.33-5.43)
[2023-08-22 06:31] LABS: Albumin 1.9 g/dL (3.4-5.0); Bilirubin Total 7.5 mg/dL (0.2-1.0); Magnesium 2.1 mg/dL (1.6-2.4); Phosphorus 1.8 mg/dL (2.5-4.9); Protein, Total 5.8 g/dL (6.4-8.2)
[2023-08-22 06:33] LABS: Potassium 2.6 mEq/L (3.5-5.1)
[2023-08-22] MEDS ORDERED: PANTOPRAZOLE 40 MG INJ ONE (10:02)
[2023-08-22] MEDS ORDERED: THIAMINE 200 MG/2 ML INJ ONE (10:03)
[2023-08-22] MEDS: KCL 20 MEQ/100 mL IVPB 20 MEQ/100 ML BAG IV SCH (10:11)
[2023-08-22] MEDS: INSULIN GLARGINE 100 UNIT/ML SQ ONE (10:13)
[2023-08-22] MEDS: KCL 20 MEQ/100 mL IVPB 100 ML IV SCH (14:00)
[2023-08-22] MEDS: POTASSIUM PHOS IN 0.9 % NACL 15 MMOL/250 ML BAG IV ONE (15:04)
[2023-08-22] MEDS: MORPHINE 2 MG/ML SYR IV ONE (15:04)
[2023-08-22] MEDS: SODIUM CHLORIDE 0.9% 10ML INJ IV PRN (21:46)
[2023-08-23] MEDS: KCL 20 MEQ/100 mL IVPB 20 MEQ/100 ML BAG IV SCH (00:02)
[2023-08-23] MEDS: INSULIN REGULAR (HUMAN) 100 UNIT/ML SQ SCH (08:15)
[2023-08-23 08:57] LABS: Phosphorus 1.7 mg/dL (2.5-4.9); Potassium 3.2 mEq/L (3.5-5.1)
[2023-08-23] MEDS: INSULIN GLARGINE 100 UNIT/ML SQ SCH (09:11)
[2023-08-23] MEDS ORDERED: POTASSIUM 25 MEQ EFFERV TAB PO ONE (11:00)
[2023-08-23] MEDS: POTASS/SODIUM PHOSPHATE 1 PKT POWD.PACK PO SCH (11:53)
[2023-08-23] MEDS: POTASSIUM 25 MEQ EFFERV TAB PO ONE (11:53)
[2023-08-23] MEDS: PANTOPRAZOLE 40MG TABLET PO SCH (16:23)
--- NOTE | 2023-08-23 17:03 | P.PN ---
Subjective Date of Service: 08/23/23 Chief Complaint: UGI bleed, hematemesis, melena, Respiratory failure patient on a ventilator Patient denies any complaint today. He has been ambulating without support and has tolerated full liquid diet. Legs are still swollen. Physical Examination - Vital Signs Temperature: 98.9 F Blood Pressure: 139/77 Pulse: 109 Respirations: 20 Pulse Ox (%): 96 Assessment And Plan - Plan Physical Exam: GEN: alert, calm, cooperative HEENT: Normal conjunctiva, sclera anicteric CV: Sinus tachycardia, 2+ bilateral lower extremity edema. Pulm: non-labored respirations on room air, clear bilaterally ABD: soft, nontender, decreased bowel sounds, mildly distended Neuro: No focal motor deficit. PICC in place vitals reviewed Problem List: GI bleed/acute blood loss anemia secondary to Esophageal varices bleed Hemorrhagic shock secondary to above Adynamic ileus Coagulopathy, s/p FFP suspect Hepatic encephalopathy Hypernatremia, improved Hypophosphatemia, improved Acute hypoxic respiratory failure, intubated for airway protection (resolved) NSTEMI Alcohol abuse Thrombocytopenia Cocaine abuse ESHA/metabolic acidosis, resolved GI bleed/acute blood loss anemia likely secondary to Esophageal varices bleed Hemorrhagic shock secondary to above Adynamic ileus Coagulopathy, s/p FFP suspect Hepatic encephalopathy Hypernatremia, improved Hypophosphatemia, improved hgb noted to be 5 on admission. s/p 5 total uPRBC so far (4 on 08/11, 1 on 08/15) hgb stable Dr. Colon - GI consulted s/p emergent EGD and banding of esophageal varices. (08/11) continue protonix BID; s/p protonix drip (08/13-08/19) s/p ~6 days octreotide drip (dc'd 08/20) stop TPN 08/21; started 08/14 Blood cx (08/13): NGTD Sputum cx (08/13): Staph Aureus dc rocephiin 08/21, completed ~9 days KUB xray (08/17): probable adynamic ileus, less likely obstruction. repeat KUB (08/21): Improvement from prior exam. Patient had a bowel movement Patient now tolerating full liquid diet. Advance diet as tolerated. avoid NGT Status post FFP for coagulopathy. off levophed since 2/14 am; remains on low dose precedex for agitation switch to P.O. nadolol once blood pressure has improved and patient is off pressors. Ammonia level markedly elevated on admission, much improved on recheck Hypernatremia resolved. Start Aldactone and Lasix Alcohol abuse Coagulopathy Thrombocytopenia Cocaine abuse acute Liver failure secondary to liver cirrhosis likely and component of hypotension / hemorrhagic shock. off levophed since 08/16. Status post FFP. Platelet transfusion PRN continue IV thiamine, IV folic acid. Toxicology screen positive for cocaine Liver u/s ordered (08/21): Liver cirrhosis. Hyperbilirubinemia likely secondary to liver cirrhosis and liver failure. Acute hypoxic respiratory failure, intubated for airway protection (resolved) Patient previously intubated for airway protection. Extubated 08/16. He has been tolerating room air. NSTEMI Troponins trended down; Cardiology consulted - likely demand ischemia secondary to anemia and vasospasms from cocaine abuse Echo (08/14): 67%EF, normal wall motion, right atrial pressure 5-10mmHg, insufficient TR ESHA/metabolic acidosis, resolved Resolved. Patient tolerating diet. VTE: SCD given bleed Code: Full Dispo: Home.
--- NOTE | 2023-08-23 17:50 | P.PN ---
Subjective Date of Service: 08/22/23 Chief Complaint: UGI bleed, hematemesis, melena, Respiratory failure patient on a ventilator Patient tolerating clear liquid diet. Legs are swollen. Stable BP. Physical Examination - Vital Signs Temperature: 98.9 F Blood Pressure: 139/77 Pulse: 109 Respirations: 20 Pulse Ox (%): 96 Assessment And Plan - Plan Physical Exam: GEN: alert, calm, cooperative HEENT: Normal conjunctiva, sclera anicteric CV: Sinus tachycardia, 2+ bilateral lower extremity edema. Pulm: non-labored respirations on room air, clear bilaterally ABD: soft, nontender, decreased bowel sounds, mildly distended Neuro: No focal motor deficit. PICC in place vitals reviewed Problem List: GI bleed/acute blood loss anemia secondary to Esophageal varices bleed Hemorrhagic shock secondary to above Adynamic ileus Coagulopathy, s/p FFP suspect Hepatic encephalopathy Hypernatremia, improved Hypophosphatemia, improved Acute hypoxic respiratory failure, intubated for airway protection (resolved) NSTEMI Alcohol abuse Thrombocytopenia Cocaine abuse ESHA/metabolic acidosis, resolved GI bleed/acute blood loss anemia likely secondary to Esophageal varices bleed Hemorrhagic shock secondary to above Adynamic ileus Coagulopathy, s/p FFP suspect Hepatic encephalopathy Hypernatremia, improved Hypophosphatemia, improved hgb noted to be 5 on admission. s/p 5 total uPRBC so far (4 on 08/11, 1 on 08/15) hgb stable GI DrEdwige Colon input appreciated. s/p emergent EGD and banding of esophageal varices. (08/11) continue protonix BID; s/p protonix drip (08/13-08/19) s/p ~6 days octreotide drip (dc'd 08/20) s/p TPN Blood cx (08/13): NGTD Sputum cx (08/13): Staph Aureus Completed 9 days of IV Rocephin KUB xray (08/17): probable adynamic ileus, less likely obstruction. repeat KUB (08/21): Improvement from prior exam. Patient now tolerating clear liquid diet Advance diet as tolerated. Status post FFP for coagulopathy. Status post Levophed, status post Precedex drip. Patient is currently awake and alert and ambulatory. Starting nadolol Hypernatremia resolved. Considering Aldactone and Lasix Lactulose for at least 2 soft to loose bowel movement per day. Alcohol abuse Coagulopathy Thrombocytopenia Cocaine abuse acute Liver failure secondary to liver cirrhosis likely and component of hypotension / hemorrhagic shock. off levophed since 08/16. Status post FFP. Platelet transfusion PRN continue IV thiamine, IV folic acid. Toxicology screen positive for cocaine Liver u/s ordered (08/21): Liver cirrhosis. Hyperbilirubinemia likely secondary to liver cirrhosis and liver failure. Acute hypoxic respiratory failure, intubated for airway protection (resolved) Patient previously intubated for airway protection. Extubated 08/16. He has been tolerating room air. NSTEMI Troponins trended down; Cardiology consulted - likely demand ischemia secondary to anemia and vasospasms from cocaine abuse Echo (08/14): 67%EF, normal wall motion, right atrial pressure 5-10mmHg, insufficient TR ESHA/metabolic acidosis, resolved Resolved. Patient tolerating diet. VTE: SCD given bleed Code: Full Dispo: Home.
[2023-08-23] MEDS: FUROSEMIDE 40 MG TABLET PO SCH (18:02)
[2023-08-23 19:00] LABS: Magnesium 2.1 mg/dL (1.6-2.4); Phosphorus 1.6 mg/dL (2.5-4.9)
[2023-08-23] MEDS: SPIRONOLACTONE 25 MG TABLET PO SCH (21:23)
[2023-08-23] MEDS: LACTULOSE 20 GM/30 ML UCUP PO SCH (21:23)
[2023-08-23] MEDS: THIAMINE HCL 100 MG TABLET PO SCH (21:23)
[2023-08-24 03:51] LABS: Absolute Lymphocytes (CBC) 1.3 K/uL (0.7-4.9); Hematocrit 23.3 % (39.6-49.0); Lymphocytes % 12.4 % (15.3-44.8); MCV 97.2 fL (80-100); MPV 8.9 fL (7.6-11.3); Platelets 110 thou/uL (152-406)
[2023-08-24 04:10] LABS: Bilirubin Total 11.3 mg/dL (0.2-1.0); Phosphorus 1.9 mg/dL (2.5-4.9); Potassium 3.1 mEq/L (3.5-5.1); Protein, Total 5.9 g/dL (6.4-8.2)
[2023-08-24] MEDS: POTASS/SODIUM PHOSPHATE 1 PKT POWD.PACK PO SCH (08:00)
[2023-08-24] MEDS: nadoloL 40 MG TAB PO SCH (09:00)
[2023-08-24] MEDS: POTASSIUM CL SA 10 MEQ TAB PO ONE (09:15)
[2023-08-24] MEDS: FOLIC ACID 1 MG TABLET PO SCH (09:15)
[2023-08-24 10:23] VITALS: BP 142/67; TEMP 98.6
[2023-08-24 11:12] VITALS: O2SAT 98
--- NOTE | 2023-08-24 14:01 | P.DS ---
Admission Date: 08/11/23 Discharge Date: 08/24/23 Disposition: ROUTINE DISCHARGE Discharge Condition: FAIR Reason for Admission: UGI bleed, hematemesis, melena, Respiratory failure patient on a ventilator Brief History of Present Illness: 37 year old male with a history of alcohol abuse was brought to the ED for bloody emesis and melana. Patient was brought in unresponsive to the ED with O2 sat of 96% on 6L O2, he was emergently intubated for airway protection. During intubation, alpa blood was noted in his esophagus. His provided the history and reported that patient had multiple episodes of bloody emesis and melana. She could not quantify how much he drinks but states that patient is a chronic alcoholic and drinks beer all day long from morning to night-time with occasional liquor for many years. He has never been hospitalized for alcohol related issues. He smokes occasionally. His vitals at the ED BP 83/56 and HR 152. He had required Levophed briefly to improve BP and then weaned off. Pertinent labs include H&H 5/14.6, MCV 100.1, glucose 318, platelets 80, AG 21, bicarb 13, BUN/CR 29/1.41, AST 41, Tbili 1.7, INR 2 and PT 22.1. He received 2u PRBC and protonix bolus. Also received platelet transfusion and FFP. Patient was admitted to the ICU for further management. Hospital Course: Diagnosis GI bleed/acute blood loss anemia secondary to Esophageal varices bleed Hemorrhagic shock secondary to above Adynamic ileus Coagulopathy, s/p FFP suspect Hepatic encephalopathy Hypernatremia, improved Hypophosphatemia, improved Acute hypoxic respiratory failure, intubated for airway protection (resolved) NSTEMI Alcohol abuse Thrombocytopenia Cocaine abuse ESHA/metabolic acidosis, resolved Patient admitted to the medical floor and the following medical problems addressed GI bleed/acute blood loss anemia likely secondary to Esophageal varices bleed Hemorrhagic shock secondary to above Adynamic ileus Coagulopathy, s/p FFP suspect Hepatic encephalopathy Hypernatremia, improved Hypophosphatemia, improved hgb noted to be 5 on admission. s/p 5 total uPRBC so far (4 on 08/11, 1 on 08/15) hgb stable Dr. Colon - GI consulted s/p emergent EGD and banding of esophageal varices. (08/11) Treated with protonix BID; s/p protonix drip (08/13-08/19) s/p octreotide drip (dc'd 08/20) Status post TPN. Blood cx (08/13): NGTD Sputum cx (08/13): Staph Aureus Patient completed 9 days of IV Rocephin. KUB xray (08/17): probable adynamic ileus, less likely obstruction. repeat KUB (08/21): Improvement from prior exam. Patient had a bowel movement Patient now tolerating full liquid diet. He tolerated solid diet. Status post FFP for coagulopathy. Status post Levophed and Precedex. Patient later placed on Nadolol for portal hypertension. Ammonia level markedly elevated on admission, much improved on recheck Hypernatremia resolved. Patient placed on Aldactone and Lasix and lactulose. Alcohol abuse Coagulopathy Thrombocytopenia Cocaine abuse acute Liver failure secondary to liver cirrhosis likely and component of hypotension / hemorrhagic shock. Status post Levophed. Status post FFP. Status post platelet transfusion. Patient placed on IV thiamine, IV folic acid and then transition to p.o. Toxicology screen positive for cocaine Liver u/s ordered (08/21): Liver cirrhosis. Hyperbilirubinemia likely secondary to liver cirrhosis and liver failure. Acute hypoxic respiratory failure, intubated for airway protection (resolved) Patient previously intubated for airway protection. Extubated 08/16. He has been tolerating room air. NSTEMI Troponins trended down; Cardiology consulted - likely demand ischemia secondary to anemia and vasospasms from cocaine abuse Echo (08/14): 67%EF, normal wall motion, right atrial pressure 5-10mmHg, insufficient TR ESHA/metabolic acidosis, resolved Resolved. Patient tolerating diet. Patient was critically ill on presentation. He was vomiting blood and unresponsive. He was intubated for airway protection. He had severe anemia with hemoglobin down to 5 with ongoing GI bleed. He was urgently evaluated by GI Dr. Colon who performed an emergency EGD, noted bleeding esophageal and gastric varices which were banded. The bleeding was arrested, patient was transfused 5 units of blood, 1 unit of platelets and 1 unit of fresh frozen plasma. Hemoglobin stabilized. Patient developed alcohol withdrawal symptoms/delirium tremens. He was intubated and on mechanical ventilation for several days. He was treated with sedating medications including Precedex. Patient was eventually extubated and sedation medications discontinued. He was monitored on the medical floor he remained stable. He tolerated diet advancement to solid consistency. He was started on medications to help reduce incidence of confusion from hepatic encephalopathy and also with use growth of the varices. Patient tolerated these medications. An attempt was made to drain his accumulated abdominal fluid (ascites) but ultrasound suggested limited fluid which could not be tapped. He is now placed on medications to increase his urination to prevent formulation of more fluid and also to help reduce his leg swelling. Patient is advised to follow-up with the liver doctor(Shelter Advocate) and establish care with a primary care physician. Vital Signs/Physical Exam: Temp Pulse Resp BP Pulse Ox 98.6 F 118 H 14 142/67 H 98 08/24/23 08:00 08/24/23 08:00 08/24/23 08:00 08/24/23 08:00 08/24/23 08:00 General: Alert, In no apparent distress, Oriented x3 HEENT: Mucous membr. moist/pink Neck: JVD not distended Respiratory: Clear to auscultation bilaterally, Normal air movement Cardiovascular: Regular rate/rhythm, Normal S1 S2, Edema (2+ bilateral lower extremity edema) Gastrointestinal: Soft and benign, No tenderness, Distended (Mildly distended.) Musculoskeletal: Swelling (Bilateral lower extremities) Integumentary: No cyanosis Neurological: Normal strength at 5/5 x4 extr Laboratory Data at Discharge: WBC 10.30 thou/uL (4.3-10.9) 08/24/23 03:41 Hgb 8.1 g/dL (13.6-17.9) L 08/24/23 03:41 Hct 23.3 % (39.6-49.0) L 08/24/23 03:41 Plt Count 110 thou/uL (152-406) L 08/24/23 03:41 PT 19.2 SECONDS (9.5-12.5) H 08/17/23 05:15 INR 1.77 08/17/23 05:15 APTT 35.7 SECONDS (24.3-36.9) 08/12/23 01:35 Sodium 138 mEq/L (136-145) 08/24/23 03:41 Potassium 3.1 mEq/L (3.5-5.1) L 08/24/23 03:41 BUN 9 mg/dL (7-18) 08/24/23 03:41 Creatinine 0.56 mg/dL (0.70-1.30) L 08/24/23 03:41 Glucose 153 mg/dL (74-106) H 08/24/23 03:41 Phosphorus 1.9 mg/dL (2.5-4.9) L 08/24/23 03:41 Magnesium 2.1 mg/dL (1.6-2.4) 08/23/23 18:37 Total Bilirubin 11.3 mg/dL (0.2-1.0) H 08/24/23 03:41 AST 53 U/L (15-37) H 08/24/23 03:41 ALT 57 U/L (16-61) 08/24/23 03:41 Alkaline Phosphatase 132 U/L (45-117) H 08/24/23 03:41 Lipase 57 U/L (13-75) 08/11/23 21:55 Home Medications: Folic Acid 1 mg PO DAILY #30 tab 08/24/23 Furosemide [Lasix*] 40 mg PO BIDL #60 tab 08/24/23 Lactulose 30 ml PO BID #1 bottle 08/24/23 Pantoprazole [Protonix Tab*] 40 mg PO BIDAC #60 tab 08/24/23 Spironolactone [Aldactone*] 50 mg PO BID #60 tab 08/24/23 Thiamine HCl [Vitamin B-1*] 100 mg PO BID #60 tab 08/24/23 nadoloL [Nadolol] 20 mg PO DAILY #30 tab 08/24/23 New Medications: Spironolactone [Aldactone*] 50 mg PO BID #60 tab Folic Acid 1 mg PO DAILY #30 tab Lactulose 30 ml PO BID #1 bottle Furosemide [Lasix*] 40 mg PO BIDL #60 tab nadoloL [Nadolol] 20 mg PO DAILY #30 tab Pantoprazole [Protonix Tab*] 40 mg PO BIDAC #60 tab Thiamine HCl [Vitamin B-1*] 100 mg PO BID #60 tab Physician Discharge Instructions: Patient was critically ill on presentation. He was vomiting blood and unresponsive. He was intubated for airway protection. He had severe anemia with hemoglobin down to 5 with ongoing GI bleed. He was urgently evaluated by GI Dr. Colon who performed an emergency EGD, noted bleeding esophageal and gastric varices which were banded. The bleeding was arrested, patient was transfused 5 units of blood, 1 unit of platelets and 1 unit of fresh frozen plasma. Hemoglobin stabilized. Patient developed alcohol withdrawal symptoms/delirium tremens. He was intubated and on mechanical ventilation for several days. He was treated with sedating medications including Precedex. Patient was eventually extubated and sedation medications discontinued. He was monitored on the medical floor he remained stable. He tolerated diet advancement to solid consistency. He was started on medications to help reduce incidence of confusion from hepatic encephalopathy and also with use growth of the varices. Patient tolerated these medications. An attempt was made to drain his accumulated abdominal fluid (ascites) but ultrasound suggested limited fluid which could not be tapped. He is now placed on medications to increase his urination to prevent formulation of more fluid and also to help reduce his leg swelling. Patient is advised to follow-up with the liver doctor(Shelter Advocate) and establish care with a primary care physician. Diet: ADA Activity: Ad heather Followup: NONE,NONE [Primary Care Provider] - 1-2 Weeks Time spent managing pt's care (in minutes): 35
== END 2023-08-24 11:20 | disposition home or self-care (01) | DRG 207 ==
LOC: ER 20:52 → EDBD 20:52 → 3RD-ICU 23:29 → 4TH 08-22 18:00
PROVIDERS: ADMIT Internal Medicine; ATTEND Internal Medicine
PROC: 5A1955Z Respiratory Ventilation, Greater than 96 Consecutive Hours (ICD-10-PCS; principal; 2023-08-11)
PROC: 0BH17EZ Insertion of Endotracheal Airway into Trachea, Via Natural or Artificial Opening (ICD-10-PCS; 2023-08-11)
PROC: 30233K1 Transfusion of Nonautologous Frozen Plasma into Peripheral Vein, Percutaneous Approach (ICD-10-PCS; 2023-08-11)
PROC: 30233N1 Transfusion of Nonautologous Red Blood Cells into Peripheral Vein, Percutaneous Approach (ICD-10-PCS; 2023-08-11)
PROC: 30233R1 Transfusion of Nonautologous Platelets into Peripheral Vein, Percutaneous Approach (ICD-10-PCS; 2023-08-11)
PROC: 3E033XZ Introduction of Vasopressor into Peripheral Vein, Percutaneous Approach (ICD-10-PCS; 2023-08-11)
PROC: 0T9B70Z Drainage of Bladder with Drainage Device, Via Natural or Artificial Opening (ICD-10-PCS; 2023-08-11)
PROC: 3E0336Z Introduction of Nutritional Substance into Peripheral Vein, Percutaneous Approach (ICD-10-PCS; 2023-08-12)
PROC: 02H633Z Insertion of Infusion Device into Right Atrium, Percutaneous Approach (ICD-10-PCS; 2023-08-12)
PROC: 02HV33Z Insertion of Infusion Device into Superior Vena Cava, Percutaneous Approach (ICD-10-PCS; 2023-08-12)
PROC: 06L38CZ Occlusion of Esophageal Vein with Extraluminal Device, Via Natural or Artificial Opening Endoscopic (ICD-10-PCS; 2023-08-13)
DX: J96.01 Acute respiratory failure with hypoxia (principal); G93.41 Metabolic encephalopathy; I85.11 Secondary esophageal varices with bleeding; R57.8 Other shock; I21.A1 Myocardial infarction type 2; D62 Acute posthemorrhagic anemia; N17.9 Acute kidney failure, unspecified; E87.20 Acidosis, unspecified; D68.9 Coagulation defect, unspecified; E87.1 Hypo-osmolality and hyponatremia; K56.0 Paralytic ileus; E87.0 Hyperosmolality and hypernatremia; K70.30 Alcoholic cirrhosis of liver without ascites; K76.82 Hepatic encephalopathy; I10 Essential (primary) hypertension; D69.6 Thrombocytopenia, unspecified; F10.10 Alcohol abuse, uncomplicated; E83.39 Other disorders of phosphorus metabolism; F14.10 Cocaine abuse, uncomplicated; K72.90 Hepatic failure, unspecified without coma; F17.200 Nicotine dependence, unspecified, uncomplicated; R94.5 Abnormal results of liver function studies; Z78.1 Physical restraint status
CPT/HCPCS: 31500; 36415; 36430; 36569; 71045; 74018; 76705; 80048; 80053; 80307; 81001; 82140; 82248; 82607; 82728; 82947; 83036; 83090; 83540; 83690; 83735; 83921; 84100; 84132; 84466; 84484; 85014; 85018; 85025; 85027; 85610; 85730; 86850; 86900; 86901; 86920; 87040; 87070; 87077; 87186; 87205; 93005; 93306; 94002; 94003; 97116; 97161; 97530; 99291; A4216; C9113; J0171; J0696; J1720; J1815; J2250; J2270; J2354; J2704; J3010; J3411; J3475; J3480; J7030; J7040; J7050; J7799; P9016; P9035; P9059; P9100

== ENCOUNTER → 2023-08-27 | Emergency (ER) | payer SELFPAY ==
[~2023-08-27] MED LIST: ALBUMIN HUMAN 25% 50 ML IV ONE; CEFTRIAXONE 1000 MG/VIAL ONE; MORPHINE 4 MG/ML SYR ONE; NA CHLORIDE 0.9% 1,000 ML ONE; ONDANSETRON 4 MG/2 ML VIAL ONE
[2023-08-27 16:24] LABS: Lymphocytes % 9.4 % (15.3-44.8); MCV 103.1 fL (80-100); MPV 8.9 fL (7.6-11.3); Platelets 149 thou/uL (152-406); Protime INR 1.94; RBC Red Blood Cell Count 2.71 M/uL (4.33-5.43)
[2023-08-27 16:35] LABS: Bilirubin Total 9.1 mg/dL (0.2-1.0); Protein, Total 6.7 g/dL (6.4-8.2); Troponin High Sensitivity 4.8 pg/mL (<58.9)
[2023-08-27 16:36] LABS: Potassium 4.5 mEq/L (3.5-5.1)
--- NOTE | 2023-08-27 17:04 | EDPHYS ---
Physician Documentation [facility] Name: Leonardo Bravo Age: 37 yrs Sex: Male : 1985 Arrival Date: 08/27/2023 Time: 13:42 Bed 13 Private MD: LELE Physician Otoniel Sancehz HPI: 08/27 14:00 This 37 yrs old Male presents to ER via Wheelchair with complaints of jh7 Abdominal Swelling, Abdominal Pain. 14:00 The patient presents with abdominal pain that is diffuse, abdominal distention that is jh7 diffuse. Onset: The symptoms/episode began/occurred 3 day(s) ago. The symptoms do not radiate. Associated signs and symptoms: Pertinent positives: testicular pain, Pertinent negatives: nausea, vomiting, and diarrhea, fever. The symptoms are described as constant, shooting. 37-year-old male released from this hospital on the for a GI bleed. The patient and his family member states that on the the patient's abdomen, testicles, and lower extremities began to swell. He has a history of alcoholism. Denies nausea, vomiting, and diarrhea.. Historical: - Allergies: 14:12 No Known Allergies; nj1 - PMHx: 14:12 Alcohol dependence; nj1 - Immunization history:: Client reports having NOT received the Covid vaccine. - Social history:: Smoking status: Patient reports the use of cigarette tobacco products, denies chronic smoking, but will smoke occasionally. ROS: 14:00 Eyes: Negative for injury, pain, redness, and discharge, Neck: Negative for injury, jh7 pain, and swelling, Cardiovascular: Negative for chest pain, palpitations, and edema, Respiratory: Negative for shortness of breath, cough, wheezing, and pleuritic chest pain, Back: Negative for injury and pain, MS/Extremity: Negative for injury and deformity, Skin: Negative for injury, rash, and discoloration, Neuro: Negative for headache, weakness, numbness, tingling, and seizure, 14:00 Constitutional: Positive for malaise, 14:00 Abdomen/GI: Positive for abdominal pain, abdominal distension, Negative for nausea, vomiting, and diarrhea, black/tarry stool, 14:00 All other systems are negative, Exam: 14:00 Head/Face: Normocephalic, atraumatic. Neck: Trachea midline, no thyromegaly or masses jh7 palpated, and no cervical lymphadenopathy. Supple, full range of motion without nuchal rigidity, or vertebral point tenderness. No Meningismus. Cardiovascular: Regular rate and rhythm with a normal S1 and S2. No gallops, murmurs, or rubs. Normal PMI, no JVD. No pulse deficits. Respiratory: Lungs have equal breath sounds bilaterally, clear to auscultation and percussion. No rales, rhonchi or wheezes noted. No increased work of breathing, no retractions or nasal flaring. Back: No spinal tenderness. No costovertebral tenderness. Full range of motion. MS/ Extremity: Pulses equal, no cyanosis. Neurovascular intact. Full, normal range of motion. Neuro: Awake and alert, GCS 15, oriented to person, place, time, and situation. Sensory grossly intact. 14:00 Constitutional: The patient appears alert, awake, obviously ill, 14:00 Eyes: Periorbital structures: appear normal, Pupils: equal, round, and reactive to light and accomodation, Extraocular movements: intact throughout, Conjunctiva: normal, Sclera: icterus, is present, 14:00 Abdomen/GI: Inspection: distension, that is moderate, Bowel sounds: normal, Palpation: moderate abdominal tenderness, in all quadrants, Liver: tenderness, that is mild, 14:00 : Male external genitalia: swelling: scrotal, that is severe, 14:00 Skin: Appearance: Color: jaundiced, Vital Signs: 14:09 BP 118 / 79; Pulse 89; Resp 18; Pulse Ox 100% on R/A; Height 5 ft. 6 in. ; Pain 8/10; nj1 16:30 BP 120 / 58; Pulse 84; Resp 18; Pulse Ox 100% ; cp4 17:30 BP 130 / 74; Pulse 81; Resp 18; Pulse Ox 100% ; cp4 18:30 BP 108 / 70; Pulse 85; Resp 18; Pulse Ox 100% ; cp4 19:30 BP 125 / 68; Pulse 86; Resp 18; Pulse Ox 100% ; cp4 14:09 Pain Scale: Adult nj1 MDM: 13:56 Patient medically screened. [facility] 18:04 Differential diagnosis: cholecystitis, Cholelithiasis, Hepatitis, pancreatitis, [facility] Cirrhosis of the liver, sepsis. 18:05 Data reviewed: vital signs, nurses notes, lab test result(s), EKG, radiologic studies, [facility] CT scan. Consideration of Admission/Observation Patient will be transferred for higher level of care. Management of patient was discussed with the following: [place] Operator: Dr. Pratt GI at [facility]. I considered the following discharge prescriptions or medication management in the emergency department Medications were administered in the Emergency Department. See MAR. Historians other than the Patient: Spouse/Significant Other: . Care significantly affected by the following chronic conditions: Liver Disease. Counseling: I had a detailed discussion with the patient and/or guardian regarding the historical points, exam findings, and any diagnostic results supporting the discharge/admit diagnosis, the need to transfer to another facility, for higher level of care, [facility] does not immediately have the required specialist. Response to treatment: the patient's symptoms have mildly improved after treatment. 08/27 14:22 Order name: CBC with Diff [facility] 08/27 14:22 Order name: CMP; Complete Time: 16:38 [facility] 08/27 14:22 Order name: Lipase; Complete Time: 16:38 [facility] 08/27 14:22 Order name: Troponin High Sensitivity; Complete Time: 16:38 [facility] 08/27 14:22 Order name: PROBNP; Complete Time: 16:38 [facility] 08/27 14:40 Order name: AMMONIA; Complete Time: 16:55 [facility] 08/27 14:40 Order name: Lactate w/ 2H reflex if indic.; Complete Time: 16:40 [facility] 08/27 14:44 Order name: PT-INR; Complete Time: 16:38 [facility] 08/27 18:07 Order name: SARS RAPID [facility] 08/27 18:44 Order name: CBC Smear Scan [facility] 08/27 14:40 Order name: CT Abd/Pelvis - IV Contrast Only; Complete Time: 17:43 [facility] 08/27 14:22 Order name: IV Saline Lock; Complete Time: 16:05 [facility] 08/27 14:22 Order name: Labs collected and sent; Complete Time: 16:05 [facility] Administered Medications: 16:14 Drug: Ondansetron IVP 4 mg IVP once; over 2 minutes Route: IVP; Site: right antecubital;cp4 18:04 Follow up: Response: No adverse reaction cp4 16:15 Drug: morphine IVP or IV 4 mg IVP once over 4 mins Route: IVP; Infused Over: 4 mins; cp4 Site: right antecubital; 18:03 Follow up: Response: No adverse reaction cp4 16:51 Drug: NS 0.9% IV 1000 ml IV at 1 bolus Per protocol; 1000 mL bolus Route: IV; Rate: 1 cp4 bolus; Site: right antecubital; 18:03 Follow up: Response: No adverse reaction; IV Status: Completed infusion cp4 16:52 Drug: Albumin IVPB 25 grams 100 ml IVPB once; (Note: Albumin 25% concentration) Volume: cp4 100 ml; Route: IVPB; Site: right antecubital; 18:04 Follow up: Response: No adverse reaction; IV Status: Completed infusion cp4 18:12 Drug: Rocephin IV 1 grams IV at 1 calculated rate once; Given slow IV push per pharmacy cp4 instructions Route: IV; Rate: 1 calculated rate; Site: right antecubital; 18:18 Follow up: Response: No adverse reaction; IV Status: Completed infusion cp4 Disposition Summary: 08/27/23 17:03 Transfer Ordered Notes: Transfer Location: [place] [id number] Reason: Higher level of care [facility] Condition: Fair 7 Problem: new [facility] Symptoms: have worsened 7 Accepting Physician: Randi LARIOS(08/27/23 20:25) cp4 Diagnosis - Biliary acute pancreatitis jh7 - Anasarca jh7 - Alcoholic cirrhosis of liver with ascites jh7 - Severe sepsis without septic shock [facility] Forms: - Medication Reconciliation Form [facility] - SBAR form [facility] Signatures: Dispatcher [employer] EDAmaris Chinchilla, CODE ENFORCEMENT OFFICER CODE ENFORCEMENT OFFICER [facility] Lorenza Zamudio, RN RN nj1 Christina Moise cp4 Corrections: (The following items were deleted from the chart) 17:44 17:03 Accepting MD kirt moraelz 17:44 17:03 Unspecified jaundice kirt Dafne 18:05 17:44 Accepting MD moralez Dafne 20:25 18:05 Accepting MD moralez cp4
--- NOTE | 2023-08-27 17:04 | ER ---
Nurse's Notes [facility] Name: Leonardo Bravo Age: 37 yrs Sex: Male : 1985 Arrival Date: 08/27/2023 Time: 13:42 Bed 13 Private MD: Diagnosis: Biliary acute pancreatitis;Anasarca;Alcoholic cirrhosis of liver with ascites;Severe sepsis without septic shock Presentation: 08/27 14:09 Chief complaint: Spouse and/or significant other states: Abdominal pain/swelling along nj1 with lower extremities and "private area" swollen. Was discharged from here the with some swelling but has worsen along with more pain. Coronavirus screen: Vaccine status: Patient reports being unvaccinated. Ebola Screen: Patient denies travel to an Ebola-affected area in the 21 days before illness onset. Initial Sepsis Screen: Does the patient meet any 2 criteria? No. Patient's initial sepsis screen is negative. Does the patient have a suspected source of infection? No. Patient's initial sepsis screen is negative. Risk Assessment: Do you want to hurt yourself or someone else? Patient reports no desire to harm self or others. Onset of symptoms was August 2023. 14:09 Method Of Arrival: Wheelchair nj 14:09 Acuity: JUAN 3 nj1 Historical: - Allergies: 14:12 No Known Allergies; nj1 - PMHx: 14:12 Alcohol dependence; nj1 - Immunization history:: Client reports having NOT received the Covid vaccine. - Social history:: Smoking status: Patient reports the use of cigarette tobacco products, denies chronic smoking, but will smoke occasionally. Screenin:06 [facility] ED Fall Risk Assessment (Adult) History of falling in the last 3 months, cp4 including since admission No falls in past 3 months (0 pts) Confusion or Disorientation No (0 pts) Intoxicated or Sedated No (0 pts) Impaired Gait No (0 pts) Mobility Assist Device Used No (0 pt) Altered Elimination No (0 pt) Score/Fall Risk Level 0 - 2 = Low Risk Oriented to surroundings, Maintained a safe environment, Educated pt \\T\\ family on fall prevention, incl call for assistance when getting out of bed, Assessed \\T\\ reinforced patient's understanding of fall precautions, Hourly rounding (assess needs \\T\\ fall precautionary measures) done. Abuse screen: Denies threats or abuse. Nutritional screening: No deficits noted. Tuberculosis screening: No symptoms or risk factors identified. Assessment: 16:06 General: Appears in no apparent distress. Behavior is calm, cooperative, appropriate cp4 for age. Pain: Complains of pain in abdomen. GI: Bowel sounds present X 4 quads. Abdomen is tender to palpation X 4 quads. Vital Signs: 14:09 BP 118 / 79; Pulse 89; Resp 18; Pulse Ox 100% on R/A; Height 5 ft. 6 in. ; Pain 8/10; nj1 16:30 BP 120 / 58; Pulse 84; Resp 18; Pulse Ox 100% ; cp4 17:30 BP 130 / 74; Pulse 81; Resp 18; Pulse Ox 100% ; cp4 18:30 BP 108 / 70; Pulse 85; Resp 18; Pulse Ox 100% ; cp4 19:30 BP 125 / 68; Pulse 86; Resp 18; Pulse Ox 100% ; cp4 14:09 Pain Scale: Adult [facility] ED Course: 13:42 Patient arrived in ED. 4 13:56 Amaris Salcido FNP is [facility]. jh7 13:56 Otoniel Sanchez MD is Attending Physician. [facility] 14:12 Triage completed. nj1 14:13 Arm band placed on right wrist. [facility] 15:51 Christina Moise is Primary Nurse. cp4 16:06 Bed in low position. Call light in reach. Side rails up X 1. cp4 16:06 No provider procedures requiring assistance completed. Inserted saline lock: 20 gauge cp4 in right antecubital area, using aseptic technique. 16:38 Notified Nurse Practitioner and/or Physician Cover Machine Operator of a critical lab result(s), hb LACTATE 2.1. 17:22 CT Abd/Pelvis - IV Contrast Only In Process Unspecified. EDMS 17:36 called [facility] Transfer [place] talked to Shaina. sp 18:17 SARS RAPID Sent. cp4 18:[address] Ketan CUMMINGS ACCEPTED PT SHAINA SALEH ADMIN APPROVAL 1816 TO BED 1515 sp REPORT NUMBER [id number]. 20:19 Provided Education on: transfer. cp4 20:19 Patient transferred, IV remains in place. cp4 Administered Medications: 16:14 Drug: Ondansetron IVP 4 mg IVP once; over 2 minutes Route: IVP; Site: right antecubital;cp4 18:04 Follow up: Response: No adverse reaction cp4 16:15 Drug: morphine IVP or IV 4 mg IVP once over 4 mins Route: IVP; Infused Over: 4 mins; cp4 Site: right antecubital; 18:03 Follow up: Response: No adverse reaction cp4 16:51 Drug: NS 0.9% IV 1000 ml IV at 1 bolus Per protocol; 1000 mL bolus Route: IV; Rate: 1 cp4 bolus; Site: right antecubital; 18:03 Follow up: Response: No adverse reaction; IV Status: Completed infusion cp4 16:52 Drug: Albumin IVPB 25 grams 100 ml IVPB once; (Note: Albumin 25% concentration) Volume: cp4 100 ml; Route: IVPB; Site: right antecubital; 18:04 Follow up: Response: No adverse reaction; IV Status: Completed infusion cp4 18:12 Drug: Rocephin IV 1 grams IV at 1 calculated rate once; Given slow IV push per pharmacy cp4 instructions Route: IV; Rate: 1 calculated rate; Site: right antecubital; 18:18 Follow up: Response: No adverse reaction; IV Status: Completed infusion cp4 Medication: 16:06 VIS not applicable for this client. cp4 Outcome: 17:03 ER care complete, transfer ordered by MD. moralez 20:19 Transferred by ground EMS to [facility], Transfer form completed. cp4 X-rays sent w/ patient. 20:19 Condition: stable 20:19 Instructed on the need for transfer, Demonstrated understanding of instructions, follow-up care, 20:25 Patient left the ED. cp4 Signatures: Dispatcher [employer] EDMS Eva Wright Heather, RN Concetta Chaudhry rg4 Amaris Salcido, ADVANCED DEVELOPER ADVANCED DEVELOPER 7 Lorenza Zamudio RN RN nj1 Christina Moise cp4
--- NOTE | 2023-08-27 17:40 | RAD REPORT ---
EXAM DESCRIPTION: CT - Abdomen Pelvis W Contrast - 08/27/2023 5:20 pm CLINICAL HISTORY: Abdominal pain COMPARISON: none. TECHNIQUE: Computed axial tomography of the abdomen pelvis was obtained. 100 cc Isovue-300 was admin istered intravenously. Oral contrast was not requested which limits evaluation of bowel and appendix All CT scans are performed using dose optimization technique as appropriate and may include automated exposure control or mA/KV adjustment according to patient size. FINDINGS: Right lower lobe consolidation Cirrhotic liver. Spleen mildly enlarged. Pancreas, adrenals and kidneys unremarkable No evidence of diverticulitis. Large hydrocele Diffuse edema within the subcutaneous tissues. Small bilateral pleural effusions Large amount of ascites Mild posterior subluxation L4 on L5 and L5 on S1. Small umbilical hernia IMPRESSION: Cirrhosis. Large amount ascites Anasarca A very large hydrocele Right lower lobe consolidation could represent atelectasis or a combination of atelectasis and pneumo mauricio
[2023-08-27 18:35] LABS: SARS-CoV-2 Antigen Rapid Res Negative (Negative)
[2023-08-27 18:43] LABS: Anisocytosis 2+; Blood Morphology Comment NOTED (NOT SEEN); Platelet Estimate ADEQ; Polychromasia 1+; White Blood Cell Scan OK (OK)
[2023-08-27 20:59] VITALS: BP 125/68; O2SAT 100
== END ==
LOC: ER 13:42
DX: K70.31 Alcoholic cirrhosis of liver with ascites (principal); R65.20 Severe sepsis without septic shock; K85.10 Biliary acute pancreatitis without necrosis or infection; R60.1 Generalized edema
CPT/HCPCS: 36415; 74177; 80053; 82140; 83605; 83690; 83880; 84484; 85025; 85610; 87811; 96365; 96375; 99285; J0696; J2405; J7030; P9047; Q9967

== ENCOUNTER 2024-05-03 17:51 | Emergency (ER) | payer SELFPAY ==
--- NOTE | 2024-05-03 18:54 | RAD REPORT ---
EXAMINATION: ONE VIEW CHEST XR CLINICAL INDICATION: Male, 38 years old.hematemesis TECHNIQUE: 1 View, AP supine, X-ray of the chest was performed. [id number]. COMPARISON: 08/16/2023 FINDINGS: Lungs and pleura: Linear atelectasis at the right lung base. No effusion. Heart and mediastinum: Normal heart size. Unremarkable mediastinal contours. Osseous structures: No acute abnormality. Tubes/lines: None Other: None. IMPRESSION: No acute intrathoracic abnormality.
[2024-05-03] MEDS ORDERED: PANTOPRAZOLE 40 MG INJ ONE (19:23)
[2024-05-03] MEDS ORDERED: NA CHLORIDE 0.9% 250 ML ONE ×2 (19:24→21:24)
[2024-05-03] MEDS ORDERED: NA CHLORIDE 0.9% 500 ML ONE ×2 (19:24→19:58)
[2024-05-03] MEDS ORDERED: METOCLOPRAMIDE 10 MG/2mL INJ ONE (19:24)
[2024-05-03 19:29] LABS: Absolute Eosinophils 0.1 K/uL (0-0.5); Absolute Lymphocytes (CBC) 0.8 K/uL (0.7-4.9); Absolute Monocytes 0.6 K/uL (0.1-1.3); Absolute Neutrophil 4.2 K/uL (1.8-8.0); Basophils % 0.7 % (0-1.3); Eosinophils % 1.1 % (0-4.4); Hematocrit 25.4 % (39.6-49.0); Hemoglobin 8.9 g/dL (13.6-17.9); Lymphocytes % 14.1 % (15.3-44.8); MCH 33.3 pg (27.0-35.0); MCHC 35.1 g/dL (32.0-36.0); MCV 94.9 fL (80-100); Monocytes % 10.7 % (3.3-12.3); Neutrophils % 73.4 % (41.7-73.7); Nucleated Red Blood Cells % 0.1 % (0-0); Platelets 99 thou/uL (152-406); RBC Red Blood Cell Count 2.67 M/uL (4.33-5.43); Red Cell Distribution Width 14.5 % (12.1-15.2)
[2024-05-03 19:32] LABS: PT Prothrombin Time 17.1 SECONDS (9.4-12.5); Protime INR 1.55
[2024-05-03 19:49] LABS: Albumin 2.6 g/dL (3.4-5.0); Anion Gap 8.8 mEq/L (5.0-15.0); Bilirubin Direct 0.6 mg/dL (0-0.2); Bilirubin Indirect, Calculated 0.9 mg/dL (0.2-0.8); Bilirubin Total 1.5 mg/dL (0.2-1.0); Globulin 2.7 g/dL (2.3-3.5); Magnesium 1.8 mg/dL (1.6-2.4); Potassium 4.8 mEq/L (3.5-5.1); Protein, Total 5.3 g/dL (6.4-8.2); Troponin High Sensitivity 3.9 pg/mL (<58.9)
[2024-05-03] MEDS ORDERED: OCTREOTIDE ACETATE 100 MCG/ML ONE (19:57)
[2024-05-03] MEDS ORDERED: OCTREOTIDE ACETATE 500 MCG/ML ONE (19:58)
[2024-05-03] MEDS ORDERED: ONDANSETRON 4 MG/2 ML VIAL ONE (20:16)
[2024-05-03] MEDS ORDERED: CEFTRIAXONE 1000 MG/VIAL ONE (20:55)
[2024-05-03] MEDS ORDERED: NA CHLORIDE 0.9% 100 ML ONE (20:55)
[2024-05-03] MEDS ORDERED: VITAMIN K (ADULT) 10 MG/ML ONE (20:55)
[2024-05-03] MEDS ORDERED: DIPHENHYDRAMINE 50 MG/ML VIAL ONE (21:24)
--- NOTE | 2024-05-03 21:31 | RAD REPORT ---
EXAM: CT CHEST, ABDOMEN AND PELVIS WITHOUT CONTRAST CLINICAL INDICATION: Male, 38 years [facility] vomiting Bed Name: 15 TECHNIQUE: CT chest, abdomen and pelvis was performed, with IV contrast, as per department protocol. Axial, sagittal and coronal reconstructions were obtained. One or more of the following dose reduction techniques were used: Automated exposure control, adjustment of the mA and/or kV according to the patient size, and/or iterative reconstruction. Unless otherwise specified, incidental findings do not require dedicated imaging follow-up. [id number]. COMPARISON: 08/27/2023 FINDINGS: Chest: LOWER NECK/CHEST WALL: Visualized thyroid gland and soft tissues are normal. LUNGS AND AIRWAYS: Linear scarring versus atelectasis in the right lower lobe. PLEURA: No pleural effusion. No pneumothorax. Hemidiaphragms are normally positioned. MEDIASTINUM AND LYMPH NODES: No mediastinal mass or fluid collection. Normal size mediastinal, hilar, and axillary lymph nodes. Lower paraesophageal varices. THORACIC AORTA: Normal caliber and configuration. PULMONARY ARTERIES: Normal caliber. HEART: Unremarkable. Abdomen/Pelvis LIVER: Cirrhotic liver morphology. No suspicious lesions. GALLBLADDER/BILE DUCTS: Nonspecific gallbladder wall thickening. PANCREAS: No mass, ductal dilation, or myrtle-pancreatic fluid. SPLEEN: Splenomegaly. ADRENALS: Normal; no mass. KIDNEYS AND URETERS: Normal size and contour. No hydronephrosis. GASTROINTESTINAL TRACT: Diffuse colonic wall thickening which may be secondary to portal hypertension . PERITONEUM: Mild ascites. LYMPH NODES: No lymphadenopathy. ABDOMINAL AORTA AND OTHER VESSELS: Normal caliber aorta and IVC. URINARY BLADDER: Normal contour. REPRODUCTIVE ORGANS: No pathologic process. MUSCULOSKELETAL: No acute or suspicious osseous abnormality. ADDITIONAL FINDINGS: None IMPRESSION: No acute or significant abnormalities in the chest, abdomen, or pelvis. Cirrhotic liver morphology wi th evidence of portal hypertension. Gallbladder wall and colonic wall thickening probably secondary to underlying liver disease/portal colopathy
--- NOTE | 2024-05-03 22:59 | EDPHYS ---
Physician Documentation [facility] Name: Leonardo Bravo Age: 38 yrs Sex: Male : 1985 Arrival Date: 05/03/2024 Time: 17:51 Bed 15 Private MD: ED Physician Otoniel Sanchez HPI: 05/03 18:35 This 38 yrs old Male presents to ER via Ambulatory with complaints of Vomiting cp - BLOOD. 18:35 The patient presents to the emergency department with vomiting, that is intermittent, cp described as red colored blood. 18:35 Onset: The symptoms/episode began/occurred yesterday. Possible causes: history of cp alcoholic cirrhosis. Associated signs and symptoms: Pertinent negatives: abdominal pain, constipation, diarrhea, fever. Severity of symptoms: in the emergency department the symptoms are unchanged despite home interventions. Historical: - Allergies: 18:14 No Known Allergies; aa5 - PMHx: 18:14 Cirrhosis of liver; aa5 18:15 Pancreatitis; GI bleed; Alcoholism; Esophageal band; aa5 - PSHx: 18:15 Esophageal band; aa5 - Immunization history:: Adult Immunizations unknown. - Infectious Disease History:: Denies. - Social history:: Smoking status: Patient denies any tobacco usage or history of. ROS: 18:40 Constitutional: Negative for body aches, chills, fever, poor PO intake, cp 18:40 Eyes: Negative for injury, pain, redness, and discharge, cp 18:40 ENT: Negative for drainage from ear(s), ear pain, sore throat, difficulty swallowing, difficulty handling secretions, 18:40 Cardiovascular: Negative for chest pain, 18:40 Respiratory: Negative for cough, shortness of breath, wheezing, 18:40 Abdomen/GI: Positive for hematemesis, Negative for abdominal pain, diarrhea, constipation, black/tarry stool, rectal bleeding, 18:40 Neuro: Negative for altered mental status, dizziness, headache, syncope, 18:40 All other systems are negative, Exam: 18:45 Constitutional: The patient appears in no acute distress, alert, awake, cp non-diaphoretic, non-toxic, well developed, well nourished, 18:45 Head/Face: Normocephalic, atraumatic. cp 18:45 Eyes: Periorbital structures: appear normal, Conjunctiva: normal, no exudate, no injection, Sclera: no appreciated abnormality, Lids and lashes: appear normal, bilaterally, 18:45 ENT: External ear(s): are unremarkable, Nose: is normal, Mouth: Lips: moist, Oral mucosa: moist, Posterior pharynx: Airway: no evidence of obstruction, patent, 18:45 Neck: ROM/movement: is normal, is supple, without pain, no range of motions limitations, 18:45 Chest/axilla: Inspection: normal, Palpation: is normal, no crepitus, no tenderness, 18:45 Cardiovascular: Rate: tachycardic, Rhythm: regular, Edema: is not appreciated, JVD: is not appreciated, 18:45 Respiratory: the patient does not display signs of respiratory distress, Respirations: normal, no use of accessory muscles, no retractions, labored breathing, is not present, Breath sounds: are clear throughout, no decreased breath sounds, no stridor, no wheezing, 18:45 Abdomen/GI: Inspection: abdomen appears normal, Palpation: abdomen is soft and non-tender, in all quadrants, 18:45 Neuro: Orientation: to person, place \T\ time. Mentation: is normal, Cerebellar function: is grossly normal, Motor: moves all fours, strength is normal, Sensation: is normal, 18:57 ECG was reviewed by the Attending Physician. Vital Signs: 18:12 BP 113 / 76; Pulse 129; Resp 20 S; Temp 99.4(O); Pulse Ox 99% on R/A; Weight 90.72 kg; aa5 19:25 BP 108 / 68; Pulse 128; Pulse Ox 99% on R/A; tm6 20:22 BP 132 / 80; Pulse 115; Pulse Ox 99% on R/A; MAP 92 mmHg; tm6 22:01 BP 117 / 73; Pulse 106; Pulse Ox 100% on R/A; MAP 85 mmHg; Pain 0/10; tm6 22:01 Pain Scale: Adult tm6 MDM: 18:10 Medical Screening Exam initiated cp 22:30 Data reviewed: vital signs, nurses notes, lab test result(s), EKG, radiologic studies, cp CT scan, plain films, and as a result, I will transfer patient. 22:30 Differential diagnosis: anemia, sepsis, gastritis, anemia. I considered the following cp discharge prescriptions or medication management in the emergency department Medications were administered in the Emergency Department. See MAR. Independent interpretation of the following test(s) in the Emergency Department EKG: See my EKG interpretation above. Care significantly affected by the following chronic conditions: Liver Disease. Response to treatment: the patient's symptoms have mildly improved after treatment. 23:00 ED course: consult with DR Gillette who will accept patient as transfer to [facility]. 05/03 18:33 Order name: Type And Screen 05/03 18:33 Order name: Basic Metabolic Panel; Complete Time: 20:15 05/03 18:33 Order name: CBC with Diff; Complete Time: 19:31 05/03 19:31 Interpretation: Normal except: HGB 8.9; HCT 25.4; PLT 99; LYM% 14.1. 05/03 18:33 Order name: LFT's; Complete Time: 20:15 05/03 18:33 Order name: Magnesium; Complete Time: 20:15 05/03 18:33 Order name: NT PRO-BNP; Complete Time: 20:15 05/03 18:33 Order name: PT-INR; Complete Time: 19:32 05/03 18:33 Order name: Troponin HS; Complete Time: 20:15 05/03 18:33 Order name: Lactate w/ 2H reflex if indic.; Complete Time: 20:15 05/03 18:33 Order name: Blood Culture Adult (2) 05/03 20:48 Order name: Fresh Frozen Plasma [facility] 05/03 18:33 Order name: XRAY Chest (1 view); Complete Time: 19:31 05/03 20:16 Order name: CT Chest, Abdomen, Pelvis - W/Contrast; Complete Time: 21:34 05/03 21:35 Interpretation: Report reviewed. 05/03 18:33 Order name: EKG; Complete Time: 18:33 05/03 18:33 Order name: Cardiac monitoring; Complete Time: 18:41 05/03 18:33 Order name: EKG - Nurse/Tech; Complete Time: 18:48 05/03 18:33 Order name: IV Saline Lock; Complete Time: 19:24 05/03 18:33 Order name: Labs collected and sent; Complete Time: 19:24 05/03 18:33 Order name: O2 Per Protocol; Complete Time: 18:41 cp 05/03 18:33 Order name: O2 Sat Monitoring; Complete Time: 18:41 cp 05/03 19:13 Order name: IV; Complete Time: 19:24 cp EC:57 Rate is 121 beats/min. Rhythm is regular. KS interval is normal. QRS interval is cp normal. QT interval is normal. T waves are Inverted in lead aVR. Interpreted by me. Reviewed by me. Administered Medications: 19:30 Drug: NS 0.9% IV 500 ml 500 ml IV at 1 bolus once; to be given as a bolus over 30 ha1 minutes Volume: 500 ml; Route: IV; Rate: 1 bolus; Site: left antecubital; 20:21 Follow up: Response: No adverse reaction; IV Status: Completed infusion; IV Intake: tm6 500ml 19:30 Drug: metoCLOPramide IVP 10 mg IVP once; over 1 to 2 minutes Route: IVP; Site: left ha1 antecubital; 20:22 Follow up: Response: No adverse reaction tm6 19:33 Drug: Pantoprazole IVP 40 mg IVP once Route: IVP; Site: right forearm; ha1 20:22 Follow up: Response: No adverse reaction tm6 19:35 Drug: Pantoprazole IVP 40 mg IVP once Route: IVP; Site: left antecubital; ha1 20:21 Follow up: Response: No adverse reaction tm6 19:45 Drug: Pantoprazole IV 8 mg/hr IV at 25 ml/hr continuous; (Standard dilution is 80 mg in ha1 250 mL NS) Route: IV; Rate: 25 ml/hr; Site: right forearm; 23:45 Follow up: IV Status: Infusion continued upon transfer; IV Intake: 100ml br2 20:21 Drug: Octreotide Infusion (50 mcg/hr) - (Octreotide IV 500 mcg, NS 0.9% IV 500 ml) IV tm6 at 50 ml/hr continuous Route: IV; Rate: 50 ml/hr; Site: left antecubital; 23:45 Follow up: Response: No adverse reaction; IV Status: Infusion continued upon transfer; br2 IV Intake: 155ml 20:21 Drug: Octreotide IV 50 mcg IV at calculated rate once Route: IV; Rate: calculated rate; tm6 Site: left antecubital; 20:21 Drug: Ondansetron IVP 4 mg IVP once; over 2 minutes Route: IVP; Site: right forearm; tm6 22:15 Follow up: Response: No adverse reaction br2 21:43 Drug: Phytonadione Sub-Q 10 mg Sub-Q once Route: Sub-Q; Site: abdomen; tm6 22:15 Follow up: Response: No adverse reaction br2 21:43 Drug: Rocephin IV 1 grams IV at calculated rate once; Given slow IV push per pharmacy tm6 instructions Route: IV; Rate: calculated rate; Site: right forearm; 22:15 Follow up: Response: No adverse reaction; IV Status: Completed infusion; IV Intake: [id number] Disposition Summary: 05/03/24 22:58 Transfer Ordered Notes: Transfer Location: [facility] cp Reason: Higher level of care cp Condition: Stable cp Problem: new cp Symptoms: have improved cp Accepting Physician: DR Gillette(05/03/24 23:45) br2 Diagnosis - GI Bleed/ Gastrointestinal hemorrhage, unspecified cp - Anemia, unspecified cp - Hematemesis cp - Alcoholic cirrhosis of liver cp Discharge Instructions: - Discharge Summary Sheet br2 Forms: - Medication Reconciliation Form cp - SBAR form br2 Signatures: Dispatcher [employer] Aishwarya Samuel, RN RN aa5 Otoniel Huggins PA PA cp Do Newton RN RN ha1 Braeden Davis RN RN tm6 Kim Amezquita RN RN br2 Corrections: (The following items were deleted from the chart) 18:33 18:33 BASIC METABOLIC PANEL+C.LAB.BRZ ordered. EDMS EDMS 18:33 18:33 CBC+H.LAB.BRZ ordered. EDMS EDMS 18:33 18:33 HEPATIC FUNCTION+C.LAB.BRZ ordered. EDMS EDMS 18:33 18:33 MAGNESIUM+C.LAB.BRZ ordered. EDMS EDMS 18:33 18:33 PROBNP+C.LAB.BRZ ordered. EDMS EDMS 18:33 18:33 PROTIME (+INR)+COAG.LAB.BRZ ordered. EDMS EDMS 18:33 18:33 Troponin High Sensitivity+C.LAB.BRZ ordered. EDMS EDMS 18:33 18:33 LACTATE+C.LAB.BRZ ordered. EDMS EDMS 18:33 18:33 BLOOD CULTURE*+BA.LAB.BRZ ordered. EDMS EDMS 18:33 18:33 TYPE AND SCREEN+BB.LAB.BRZ ordered. EDMS EDMS 23:45 22:58 DR Gillette cp br2 05/04 23:36 11 18:35 Onset: The symptoms/episode began/occurred today, cp cp
--- NOTE | 2024-05-03 22:59 | ER ---
Nurse's Notes [facility] Name: Leonardo Bravo Age: 38 yrs Sex: Male : 1985 Arrival Date: 05/03/2024 Time: 17:51 Bed 15 Private MD: Diagnosis: GI Bleed/ Gastrointestinal hemorrhage, unspecified;Anemia, unspecified;Hematemesis;Alcoholic cirrhosis of liver Presentation: 05/03 18:12 Chief complaint: Pt's reports vomiting blood since yesterday. Pt reports abd pain. aa5 Coronavirus screen: At this time, the client does not indicate any symptoms associated with coronavirus-19. Ebola Screen: Patient denies travel to an Ebola-affected area in the 21 days before illness onset. Initial Sepsis Screen: Does the patient meet any 2 criteria? HR > 90 bpm. Does the patient have a suspected source of infection? No. Patient's initial sepsis screen is negative. Risk Assessment: Do you want to hurt yourself or someone else? Patient reports no desire to harm self or others. Onset of symptoms was May 02, 2024. 18:12 Method Of Arrival: Ambulatory aa5 18:12 Acuity: JUAN 2 aa5 Historical: - Allergies: 18:14 No Known Allergies; aa5 - PMHx: 18:14 Cirrhosis of liver; aa5 18:15 Pancreatitis; GI bleed; Alcoholism; Esophageal band; aa5 - PSHx: 18:15 Esophageal band; aa5 - Immunization history:: Adult Immunizations unknown. - Infectious Disease History:: Denies. - Social history:: Smoking status: Patient denies any tobacco usage or history of. Screenin:48 [facility] ED Fall Risk Assessment (Adult) History of falling in the last 3 months, ko1 including since admission No falls in past 3 months (0 pts) Confusion or Disorientation No (0 pts) Intoxicated or Sedated No (0 pts) Impaired Gait No (0 pts) Mobility Assist Device Used No (0 pt) Altered Elimination No (0 pt) Score/Fall Risk Level 0 - 2 = Low Risk Oriented to surroundings, Maintained a safe environment, Educated pt \T\ family on fall prevention, incl call for assistance when getting out of bed, Assessed \T\ reinforced patient's understanding of fall precautions, Provided non-skid footwear, Hourly rounding (assess needs \T\ fall precautionary measures) done, Used ambulatory aids as needed (educated on \T\ assisted with). Abuse screen: Denies threats or abuse. Denies injuries from another. Nutritional screening: No deficits noted. Tuberculosis screening: No symptoms or risk factors identified. Assessment: 19:25 General: Appears uncomfortable, ill, Behavior is cooperative. Pain: Denies pain. Neuro: tm6 Level of Consciousness is awake, alert, obeys commands, Oriented to person, place, time, situation. Cardiovascular: Patient's skin is warm and dry. Rhythm is sinus tachycardia. Respiratory: Airway is patent Respiratory effort is even, unlabored, Respiratory pattern is regular, symmetrical. GI: Abdomen is flat, non-distended, Reports nausea, vomiting, vomiting blood since yesterday. : No signs and/or symptoms were reported regarding the genitourinary system. EENT: No signs and/or symptoms were reported regarding the EENT system. Derm: No signs and/or symptoms reported regarding the dermatologic system. Musculoskeletal: No signs and/or symptoms reported regarding the musculoskeletal system. 19:25 GI: Pt is actively vomiting coffee brown secretions. ha1 19:25 Reassessment: MEDICATED PATIENT ORDERED. NOTIFIED CARE PROVIDER PAGE OF VOMITING . ha1 22:01 Reassessment: Patient and/or family updated on plan of care and expected duration. Pain tm6 level reassessed. Patient is alert, oriented x 3, equal unlabored respirations, skin warm/dry/pink. Vital Signs: 18:12 BP 113 / 76; Pulse 129; Resp 20 S; Temp 99.4(O); Pulse Ox 99% on R/A; Weight 90.72 kg; aa5 19:25 BP 108 / 68; Pulse 128; Pulse Ox 99% on R/A; tm6 20:22 BP 132 / 80; Pulse 115; Pulse Ox 99% on R/A; MAP 92 mmHg; tm6 22:01 BP 117 / 73; Pulse 106; Pulse Ox 100% on R/A; MAP 85 mmHg; Pain 0/10; tm6 22:01 Pain Scale: Adult tm6 ED Course: 17:58 Patient arrived in ED. mg5 18:09 Otoniel Huggins PA is PHCP. cp 18:10 Yoni Malave MD is Attending Physician. cp 18:12 Arm band placed on. aa5 18:13 Triage completed. aa5 18:40 Vida Al, RN is Primary Nurse. ko1 18:48 Patient has correct armband on for positive identification. Placed in gown. Bed in low ko1 position. Call light in reach. Side rails up X2. Provided Education on: labs. Client placed on continuous cardiac and pulse oximetry monitoring. NIBP monitoring applied. 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 Door closed. Noise minimized. Lights dimmed. Warm blanket given. Pillow given. 18:48 EKG done, by ED staff, reviewed by Otoniel BARNARD. ko1 18:51 XRAY Chest (1 view) In Process Unspecified. EDMS 19:20 Inserted saline lock: 22 gauge in right forearm, using aseptic technique. Flushed with ha1 10 mL NS. 19:24 Braeden Davis, RN is Primary Nurse. tm6 19:24 Basic Metabolic Panel Sent. tm6 19:24 CBC with Diff Sent. tm6 19:24 LFT's Sent. tm6 19:24 Magnesium Sent. tm6 19:24 NT PRO-BNP Sent. tm6 19:24 PT-INR Sent. tm6 19:24 Troponin HS Sent. tm6 19:24 Lactate w/ 2H reflex if indic. Sent. tm6 19:24 Blood Culture Adult (2) Sent. tm6 19:24 Type And Screen Sent. tm6 19:24 Inserted saline lock: 22 gauge in left antecubital area, using aseptic technique. Blood tm6 collected. Flushed with 10 mL NS. 20:33 Otoniel Sanchez MD is Attending Physician. cp 21:24 CT Chest, Abdomen, Pelvis - W/Contrast In Process Unspecified. EDMS 23:45 No provider procedures requiring assistance completed. Patient transferred, IV remains br2 in place. Administered Medications: 19:30 Drug: NS 0.9% IV 500 ml 500 ml IV at 1 bolus once; to be given as a bolus over 30 ha1 minutes Volume: 500 ml; Route: IV; Rate: 1 bolus; Site: left antecubital; 20:21 Follow up: Response: No adverse reaction; IV Status: Completed infusion; IV Intake: tm6 500ml 19:30 Drug: metoCLOPramide IVP 10 mg IVP once; over 1 to 2 minutes Route: IVP; Site: left ha1 antecubital; 20:22 Follow up: Response: No adverse reaction tm6 19:33 Drug: Pantoprazole IVP 40 mg IVP once Route: IVP; Site: right forearm; ha1 20:22 Follow up: Response: No adverse reaction tm6 19:35 Drug: Pantoprazole IVP 40 mg IVP once Route: IVP; Site: left antecubital; ha1 20:21 Follow up: Response: No adverse reaction tm6 19:45 Drug: Pantoprazole IV 8 mg/hr IV at 25 ml/hr continuous; (Standard dilution is 80 mg in ha1 250 mL NS) Route: IV; Rate: 25 ml/hr; Site: right forearm; 23:45 Follow up: IV Status: Infusion continued upon transfer; IV Intake: 100ml br2 20:21 Drug: Octreotide Infusion (50 mcg/hr) - (Octreotide IV 500 mcg, NS 0.9% IV 500 ml) IV tm6 at 50 ml/hr continuous Route: IV; Rate: 50 ml/hr; Site: left antecubital; 23:45 Follow up: Response: No adverse reaction; IV Status: Infusion continued upon transfer; br2 IV Intake: 155ml 20:21 Drug: Octreotide IV 50 mcg IV at calculated rate once Route: IV; Rate: calculated rate; tm6 Site: left antecubital; 20:21 Drug: Ondansetron IVP 4 mg IVP once; over 2 minutes Route: IVP; Site: right forearm; tm6 22:15 Follow up: Response: No adverse reaction br2 21:43 Drug: Phytonadione Sub-Q 10 mg Sub-Q once Route: Sub-Q; Site: abdomen; tm6 22:15 Follow up: Response: No adverse reaction br2 21:43 Drug: Rocephin IV 1 grams IV at calculated rate once; Given slow IV push per pharmacy tm6 instructions Route: IV; Rate: calculated rate; Site: right forearm; 22:15 Follow up: Response: No adverse reaction; IV Status: Completed infusion; IV Intake: [id number] Medication: 18:48 VIS not applicable for this client. ko1 Intake: 20:21 IV: 500ml; Total: 500ml. tm6 22:15 IV: 10ml; Total: 510ml. br2 23:45 IV: 155ml; Total: 665ml. br2 23:45 IV: 100ml; Total: 765ml. br2 Output: 20:22 Gastric: 400ml (Emesis); Total: 400ml. tm6 Outcome: 22:58 ER care complete, transfer ordered by cp 23:45 Patient left the ED. br2 23:45 Transferred by ground EMS to [facility], Transfer form completed. X-rays sent br2 w/ patient. 23:45 Condition: good 23:45 Discharge instructions given to patient, Instructed on the need for transfer, Signatures: Dispatcher [employer] EDMS Aishwarya Fiore RN RN aa5 Otoniel Huggins PA PA cp Do Newton RN RN ha1 Vida Al RN RN ko1 Karma Bland 5 Braeden Davis RN RN tm6 Kim Amezquita RN RN br2 Corrections: (The following items were deleted from the chart) 18:19 18:12 BP 113 / 76; Pulse 129bpm; Resp 20bpm; Spontaneous; Pulse Ox 99% RA; Temp 99.4F aa5 Oral; aa5 19:49 19:25 GI: Pt is actively vomiting coffee brown secretions ha1 ha1
[2024-05-04 00:22] VITALS: TEMP 99.4
[2024-05-04 00:25] VITALS: BP 117/73; O2SAT 100
== END 2024-05-03 23:45 | disposition short-term general hospital (02) ==
LOC: ER 17:51
PROC: 30233K1 Transfusion of Nonautologous Frozen Plasma into Peripheral Vein, Percutaneous Approach (ICD-10-PCS; principal; 2024-05-03)
DX: D64.9 Anemia, unspecified (principal); K70.30 Alcoholic cirrhosis of liver without ascites; F10.20 Alcohol dependence, uncomplicated
CPT/HCPCS: 36415; 71045; 71260; 74177; 80048; 80076; 83605; 83735; 83880; 84484; 85025; 85610; 86850; 86900; 86901; 86920; 87040; 96372; 99285; J0696; J1200; J2354; J2405; J2470; J2765; J3430; J7040; J7050; P9059; Q9967

== ENCOUNTER 2025-02-16 09:04 | Emergency (ER) | payer SELFPAY ==
[2025-02-16] MEDS ORDERED: LIDOCAINE 1% 20 ML MDV ONE (09:33)
--- NOTE | 2025-02-16 10:06 | ER ---
Nurse's Notes [facility] Name: Leonardo Bravo Age: 39 yrs Sex: Male : 1985 Arrival Date: 02/16/2025 Time: 09:04 Bed 4 Private MD: Diagnosis: Cutaneous abscess of head [any part, except face] Presentation: 02/16 09:19 Chief complaint: Patient states: abscess to right side of head above ear X 2 days. iw Coronavirus screen: At this time, the client does not indicate any symptoms associated with coronavirus-19. Ebola Screen: No symptoms or risks identified at this time. Initial Sepsis Screen: Does the patient meet any 2 criteria? No. Patient's initial sepsis screen is negative. Does the patient have a suspected source of infection? No. Patient's initial sepsis screen is negative. Risk Assessment: Do you want to hurt yourself or someone else? Patient reports no desire to harm self or others. Onset of symptoms was February 14, 2025. 09:19 Method Of Arrival: Ambulatory iw 09:19 Acuity: JUAN 4 iw Historical: - Allergies: 09:20 No Known Allergies; iw - PMHx: 09:20 Alcohol dependence; Alcoholism; cirrhosis of liver; Esophageal band; GI Bleed; iw Pancreatitis; - PSHx: 09:20 Esophageal band; iw - Immunization history:: Adult Immunizations not up to date. - Infectious Disease History:: Denies. - Social history:: Smoking status: Patient denies any tobacco usage or history of. - Family history:: not pertinent. - Hospitalizations: : No recent hospitalization is reported. Screenin:45 [facility] ED Fall Risk Assessment (Adult) History of falling in the last 3 months, jl7 including since admission No falls in past 3 months (0 pts) Confusion or Disorientation No (0 pts) Intoxicated or Sedated No (0 pts) Impaired Gait No (0 pts) Mobility Assist Device Used No (0 pt) Altered Elimination No (0 pt) Score/Fall Risk Level 0 - 2 = Low Risk Oriented to surroundings, Maintained a safe environment. Abuse screen: Denies threats or abuse. Denies injuries from another. Nutritional screening: No deficits noted. Tuberculosis screening: No symptoms or risk factors identified. Assessment: 09:45 General: Appears in no apparent distress. uncomfortable, Behavior is calm, cooperative, jl7 appropriate for age. Pain: Complains of pain in scalp Pain currently is 8 out of 10 on a pain scale. Neuro: [place] Agitation-Sedation Scale (RASS): 0 - Alert and Calm Level of Consciousness is awake, alert, obeys commands, Oriented to person, place, time, situation. Cardiovascular: Patient's skin is warm and dry. Respiratory: Airway is patent Respiratory effort is even, unlabored, Respiratory pattern is regular, symmetrical. Derm: Skin is pink, warm \T\ dry. Abscess located on right temporal area is half dollar sized, is raised. Vital Signs: 09:19 BP 151 / 103; Pulse 88; Resp 19; Temp 98.2; Pulse Ox 97% on R/A; Weight 107.5 kg; iw Height 5 ft. 8 in. ; Pain 8/10; 10:26 BP 138 / 78; Pulse 90; Resp 18; Pulse Ox 98% ; ap3 09:19 Body Mass Index 36.04 (107.50 kg, 172.72 cm) iw 09:19 Pain Scale: Adult iw ED Course: 09:07 Patient arrived in ED. al6 09:10 Misha Montana MD is Attending Physician. rn 09:15 Coral Walker RN is Primary Nurse. ap3 09:20 Triage completed. iw 09:20 Arm band placed on. iw 09:45 Patient has correct armband on for positive identification. Provided Education on: use jl7 of call small. 09:55 Assist provider with I \T\ D: of an abscess on right side of scalp Set up I\T\D tray. jl 7 Performed by Misha Montana MD Wound packed. iodoform gauze, Patient tolerated well. 10:27 Patient did not have IV access during this emergency room visit. ap3 Administered Medications: 09:55 Drug: Lidocaine Infiltration (1 %) 1 vials 20 ml Infiltration once; to bedside {Note: jl7 administered by SRIDEVI.} Volume: 20 ml; Route: Infiltration; Medication: 09:45 VIS not applicable for this client. jl7 Outcome: 10:06 Discharge ordered by . rn 10:27 Discharged to home ambulatory, with family, ap3 10:27 Condition: good 10:27 Discharge instructions given to patient, family, Instructed on discharge instructions, follow up and referral plans. medication usage, Demonstrated understanding of instructions, follow-up care, medications, wound care, Prescriptions given X 2, 10:27 Patient left the ED. ap3 Signatures: Oliva Wilson RN RN iw Nieto, Roman, MD MD rn Leal, Jahala, RN RN jl7 Coral Walker RN RN ap3 Robyn [email or web address]
--- NOTE | 2025-02-16 10:06 | EDPHYS ---
Physician Documentation [facility] Name: Leonardo Bravo Age: 39 yrs Sex: Male : 1985 Arrival Date: 02/16/2025 Time: 09:04 Bed 4 Private MD: ED Physician Misha Montana HPI: 02/16 09:37 This 39 yrs old Male presents to ER via Ambulatory with complaints of Abscess. rn 09:37 Patient reports swelling above right ear in scalp for 2 weeks. Increased pain and rn swelling. Has had an abscess before that required incision and drainage. No spontaneous drainage. No fever.. Historical: - Allergies: : No Known Allergies; iw - PMHx: :20 Alcohol dependence; Alcoholism; cirrhosis of liver; Esophageal band; GI Bleed; iw Pancreatitis; - PSHx: :20 Esophageal band; iw - Immunization history:: Adult Immunizations not up to date. - Infectious Disease History:: Denies. - Social history:: Smoking status: Patient denies any tobacco usage or history of. - Family history:: not pertinent. - Hospitalizations: : No recent hospitalization is reported. ROS: 09:37 Constitutional: Negative for fever, chills, and weight loss, Neck: Negative for injury, rn pain, and swelling, Cardiovascular: Negative for chest pain, palpitations, and edema, Respiratory: Negative for shortness of breath, cough, wheezing, and pleuritic chest pain, Abdomen/GI: Negative for abdominal pain, nausea, vomiting, diarrhea, and constipation, MS/Extremity: Negative for injury and deformity, Skin: Positive for swelling and abscess to right scalp Neuro: Negative for headache, weakness, numbness, tingling, and seizure, Exam: 09:37 Constitutional: This is a well developed, well nourished patient who is awake, alert, rn and in no acute distress. Head/Face: Normocephalic, 3 cm fluctuant and tender area right parietal region scalp above right ear. Does not involve the ear. Vital Signs: 09:19 BP 151 / 103; Pulse 88; Resp 19; Temp 98.2; Pulse Ox 97% on R/A; Weight 107.5 kg; iw Height 5 ft. 8 in. ; Pain 8/10; 10:26 BP 138 / 78; Pulse 90; Resp 18; Pulse Ox 98% ; ap3 09:19 Body Mass Index 36.04 (107.50 kg, 172.72 cm) iw 09:19 Pain Scale: Adult iw Procedures: 10:05 I \T\ D: Incision and drainage was performed for an abscess of the right Prepped with rn Betadine, Anesthetized with 2 ml's 1% Lidocaine. Incised with #11 blade. Drained large amount purulent fluid. serosanguinous fluid. bloody fluid. Loculations removed. Cultures obtained. Abscess cavity explored. Packed with iodoform gauze, Dressing: sterile 4x4 gauze, the patient tolerated the procedure well. MDM: 09:10 Medical Screening Exam initiated rn 10:05 Differential diagnosis: abscess. Data reviewed: vital signs, nurses notes, and as a rn result, I will discharge patient. Counseling: I had a detailed discussion with the patient and/or guardian regarding the historical points, exam findings, and any diagnostic results supporting the discharge/admit diagnosis, the need for outpatient follow up, to return to the emergency department if symptoms worsen or persist or if there are any questions or concerns that arise at home. Special discussion: I discussed with the patient/guardian in detail that at this point there is no indication for admission to the hospital. It is understood, however, that if the symptoms persist or worsen the patient needs to return immediately for re-evaluation. 02/16 09:26 Order name: Incision \T\ Drainage Setup; Complete Time: 09:37 rn Administered Medications: 09:55 Drug: Lidocaine Infiltration (1 %) 1 vials 20 ml Infiltration once; to bedside {Note: jl7 administered by ERD.} Volume: 20 ml; Route: Infiltration; Disposition Summary: 02/16/25 10:06 Discharge Ordered Notes: Location: Home rn Problem: new rn Symptoms: have improved rn Condition: Stable rn Diagnosis - Cutaneous abscess of head [any part, except face] rn Followup: rn - With: Private Physician - When: 2 - 3 days - Reason: Wound Recheck, Recheck today's complaints, Re-evaluation by your physician Discharge Instructions: - Discharge Summary Sheet rn - Skin Abscess rn - Incision and Drainage rn - Wound Packing rn - Incision and Drainage, Care After rn Forms: - Medication Reconciliation Form rn - 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
[2025-02-16 16:03] VITALS: TEMP 98.2
[2025-02-16 16:09] VITALS: BP 138/78; O2SAT 98
== END 2025-02-16 10:27 | disposition home or self-care (01) ==
LOC: ER 09:04
PROC: 0H90XZZ Drainage of Scalp Skin, External Approach (ICD-10-PCS; principal; 2025-02-16)
DX: L02.811 Cutaneous abscess of head [any part, except face] (principal)
CPT/HCPCS: 99283; J2003